=== PATIENT | male | born 1940 | race Caucasian/White ===

== ENCOUNTER 2021-05-05 08:33 | Inpatient (IN) ==
--- NOTE | 2021-05-05 08:52 | Emergency Department Note ---
Impression & Plan Bilateral leg weakness, Myelopathy concurrent with and due to spinal stenosis of thoracic region, Back pain ED Provider Note NAME: SHONNA BRAXTON AGE: 81 SEX: M : 1940 ARRIVES VIA: Walk-In INFORMANT: Patient ED PROVIDER(S): Stephen Frost DO CHIEF COMPLAINT: back pain and leg weakness HPI: Patient is an 81-year-old male who presents to the ER for worsening lower back pain and weakness in his bilateral lower extremities. This has been going on for the past year. He notes that recently over the past month it has significantly worsened. He can no longer walk in the snow. He is having trouble getting around his house. He denies any headache or change in vision. No chest pain or shortness of breath. He notes he does feel constipated. No belly pain. Denies any dysuria, urgency, or frequency. No trouble moving his bowels. No new numbness. 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 He is following with Dr. Saldaña as an outpatient. He is scheduled to have this operated on. He came in today as his symptoms have worsened. ROS: See above HPI for pertinent positives & negatives. A total of 10 systems reviewed and were otherwise negative. PAST MEDICAL HISTORY:See Below PAST SURGICAL HISTORY:See Below FAMILY HISTORY:See Below SOCIAL HISTORY:See Below HOME MEDICATIONS:See Below ALLERGIES:See Below VITALS:See Below PHYSICAL EXAMINATION: GENERAL: Sitting up in bed, alert, well appearing, well nourished, no distress, non-toxic EYE EXAM: normal conjunctiva. OROPHARYNX: no exudate, no erythema, lips, buccal mucosa, and tongue normal and mucous membranes are moist NECK: supple, no nuchal rigidity, no adenopathy, non-tender LUNGS: Clear to auscultation. Normal chest wall mechanics HEART: no murmurs, S1 normal and S2 normal ABDOMEN: abdomen soft, non-tender, normo-active bowel sounds, no masses, no rebound or guarding. BACK: Back is symmetrical on inspection and there is no deformity, old midline incision with midline tenderness UPPER EXTREMITIES: upper extremities are grossly normal. LOWER EXTREMITIES: Flexion and extension of the right hip is slightly weaker than the left at 4/5. Flexion extension of the knees is intact. Unable to plantar and dorsiflex on the right. Plantar and dorsiflexion is intact on the left. Able to ambulate with a left and has difficulty lifting right foot. NEURO EXAM: Normal sensorium, cranial nerves II-XII grossly intact, normal speech. MEDICAL DECISION MAKING: Patient is an 81-year-old male who presents ER for worsening back pain likely secondary to spinal stenosis. He notes he can barely get around at home and cannot walk in the snow. IV was established blood work was obtained. Labs show no significant leukocytosis or anemia. BMP was unremarkable. LFTs bilirubin lipase was unremarkable. On exam he does have some weakness in the right leg. Uncertain of chronicity. He does admit to trouble getting around and deterioration at home. Discussed with Dr. Saldaña who this patient follows with. No need for additional imaging. Will evaluate the patient admit for further work-up. Triage Nursing notes reviewed. Limited review of prior medical records performed Vital Signs: reviewed and remarkable for no significant abnormalities Differential diagnosis: Differential diagnoses includes but is not limited to lumbar radiculopathy, kidney stone, muscle strain, facture, cauda equina, mass, and disc herniation. ER treatment provided: See below Diagnostics interpreted by me: ECG: none Cardiac Monitoring: An order was placed for continuous cardiac monitoring. The monitor shows a rate of 70 with sinus rhythm. Laboratory studies: As stated above and show below. Imaging studies: See below Consultation(s): Discussed with Dr. Saldaña for further evaluation Procedures: none Critical Care: None Past Med/Surg History Social History Smoking Status: Never smoker Feels Safe at Home: Yes Allergies Allergies Allergy/AdvReac Type Severity Reaction Status Date / Time No Known Allergies Allergy Unknown Verified 05/05/21 09:38 Home Meds Home Medications Medication Instructions Recorded Confirmed alfuzosin 10 mg tablet,extended 10 mg PO DAILY@1400 05/05/21 05/05/21 release 24 hr bisoprolol fumarate 5 mg tablet 2.5 mg PO QAM 05/05/21 05/05/21 bumetanide 1 mg tablet 1 mg PO TID 05/05/21 05/05/21 calcium carbonate 500 mg-vitamin 1 tab PO QDL 05/05/21 05/05/21 D3 5 mcg (200 unit) tablet (Calcium 500 + D) cholecalciferol (vitamin D3) 25 25 mcg PO BID 05/05/21 05/05/21 mcg (1,000 unit) capsule (Vitamin D3) coQ10 (ubiquinol) 200 mg capsule 200 mg PO QDL 05/05/21 05/05/21 cyanocobalamin (vitamin B-12) 1,000 mcg PO QDL 05/05/21 05/05/21 1,000 mcg tablet (Vitamin B-12) folic acid 800 mcg tablet 0.8 mg PO QDL 05/05/21 05/05/21 hydroxychloroquine 200 mg tablet 200 mg PO BID 05/05/21 05/05/21 magnesium oxide 400 mg PO QDL 05/05/21 05/05/21 pantoprazole 40 mg tablet,delayed 40 mg PO QAM 05/05/21 05/05/21 release ramipril 10 mg capsule 10 mg PO UD 05/05/21 05/05/21 testosterone 30 mg/actuation (1.5 1 pump TOPICAL QAM 05/05/21 05/05/21 mL) transderm solution metered pump vitamin E (dl, acetate) 180 mg 180 mg PO QAM 05/05/21 05/05/21 (400 unit) capsule zinc 50 mg tablet 50 mg PO QDL 05/05/21 05/05/21 Results & Data (ED) Vital Signs Vital Signs - 24 hr 05/05/21 08:37 05/05/21 09:30 05/05/21 09:39 Temperature 36.8 C Temperature Source Temporal Artery Scan Pulse Rate 86 80 81 Pulse Rate from SpO2 Sensor 83 Pulse Rhythm Regular Respiratory Rate 20 20 16 Respiratory Effort / Characteristics Non-Labored Spontaneous Respiratory Depth Normal Respiratory Pattern Regular Blood Pressure 139/73 127/70 Blood Pressure Mean 95 89 Pulse Oximetry 94 94 93 Oxygen Delivery Method Room Air Room Air Room Air Sepsis Recent Fever Within 48 Hours No Sepsis New/Unexplained Change in Mental Status No Sepsis Action Taken by Nursing No Action Required 05/05/21 10:00 Temperature Temperature Source Pulse Rate 73 Pulse Rate from SpO2 Sensor 79 Pulse Rhythm Respiratory Rate 23 Respiratory Effort / Characteristics Respiratory Depth Respiratory Pattern Blood Pressure 136/88 Blood Pressure Mean 104 Pulse Oximetry 93 Oxygen Delivery Method Sepsis Recent Fever Within 48 Hours Sepsis New/Unexplained Change in Mental Status Sepsis Action Taken by Nursing Laboratory Data Result diagrams: 05/05/21 09:30 05/05/21 09:30 Lab Results 05/05/21 05/05/21 05/05/21 Range/Units 09:30 09:30 09:31 WBC 10.10 (4.8-10.8) K/uL RBC 4.12 L (4.7-6.1) M/uL Hgb 15.4 (14.0-18.0) g/dL Hct 44.9 (42-52) % MCV 109.0 H (80-100) fL MCH 37.4 H (25-34) pg MCHC 34.3 (32-36) g/dL RDW Std Deviation 68.0 H (36.4-46.3) fL RDW Coeff of Nora 17.2 H (11.5-14.5) % Plt Count 229 (130-400) K/uL MPV 11.0 H (7.4-10.4) fL Immature Gran % (Auto) 3.5 % Neut % (Auto) 73.7 % Lymph % (Auto) 9.7 % Bates % (Auto) 10.6 % Eos % (Auto) 1.9 % Baso % (Auto) 0.6 % Neut # (Auto) 7.45 H (1.4-6.5) K/uL Lymph # (Auto) 0.98 L (1.2-3.4) K/uL Bates # (Auto) 1.07 H (0.11-0.59) K/uL Eos # (Auto) 0.19 (0-0.5) K/uL Baso # (Auto) 0.06 (0-0.2) K/uL Immature Gran # (Auto) 0.35 H (0.00-0.02) K/uL Sodium 135 L (136-145) mmol/L Potassium 3.5 (3.5-5.1) mmol/L Chloride 97 L (98-107) mmol/L Carbon Dioxide 32 (21-32) mmol/L Anion Gap 6 (3-11) BUN 15 (6-23) mg/dl Creatinine 0.83 (0.6-1.4) mg/dl Est Cr Clr Drug Dosing 86.3 ml/min Est GFR ( Amer) 94.3 ml/min Est GFR (Non-Af Amer) 81.4 ml/min BUN/Creatinine Ratio 18.1 (10-20) Glucose 110 H (70-99(Fasting)) mg/dl Calcium 8.5 (8.5-10.1) mg/dl Total Bilirubin 1.1 H (0.2-1.0) mg/dl AST 27 (13-39) U/L ALT 19 (7-52) U/L Alkaline Phosphatase 42 (34-104) U/L Total Protein 6.0 (6.0-8.3) gm/dl Albumin 3.7 (3.4-5.0) gm/dl Globulin 2.3 L (2.5-4.0) gm/dl Albumin/Globulin Ratio 1.6 (0.9-2) Lipase 22 (11-82) U/L SARS-CoV-2, RNA, NAAT NEGATIVE (NEGATIVE) Discharge Plan Visit Data Chief Complaint: Leg Weakness, Bilateral Stated Complaint: LEG NUMBNESS AND PAIN ED Provider: Stephen Frost Discharge Problem: Bilateral leg weakness, Myelopathy concurrent with and due to spinal stenosis of thoracic region, Back pain Forms Stand Alone Forms: [facility] Prescriptions Prescriptions: No Action cyanocobalamin (vitamin B-12) [Vitamin B-12] 1,000 mcg Tablet 1,000 mcg PO QDL RF: 0 bisoprolol fumarate 5 mg tablet 2.5 mg PO QAM RF: 0 pantoprazole 40 mg tablet,delayed release (DR/EC) 40 mg PO QAM RF: 0 bumetanide 1 mg tablet 1 mg PO TID RF: 0 zinc 50 mg Tablet 50 mg PO QDL RF: 0 hydroxychloroquine 200 mg tablet 200 mg PO BID RF: 0 folic acid 800 mcg Tablet 0.8 mg PO QDL RF: 0 ramipril 10 mg capsule 10 mg PO UD RF: 0 cholecalciferol (vitamin D3) [Vitamin D3] 25 mcg (1,000 unit) Capsule 25 mcg PO BID RF: 0 alfuzosin 10 mg tablet extended release 24 hr 10 mg PO DAILY@1400 RF: 0 calcium carbonate-vitamin D3 [Calcium 500 + D] 500 mg-5 mcg (200 unit) Tablet 1 tab PO QDL RF: 0 vitamin E (dl, acetate) 180 mg (400 unit) Capsule 180 mg PO QAM RF: 0 coQ10 (ubiquinol) 200 mg Capsule 200 mg PO QDL RF: 0 testosterone 30 mg/actuation (1.5 mL) solution in metered pump w/ana 1 pump topical QAM RF: 0 magnesium oxide 400 mg magnesium Tablet 400 mg PO QDL RF: 0 Referrals Referrals: PCP,NO [Physician] -
--- NOTE | 2021-05-05 09:31 | History & Physical Report ---
Date of Service May 05, 2021 Assessment & Plan (1) Myelopathy concurrent with and due to spinal stenosis of thoracic region: Plan: Assessment thoracic myelopathy. Plan at this time the patient does have an MRI dated 04/13/2019 2L thoracic spine demonstrating disc herniation severe spinal stenosis and evidence of instability at T10-T11. He is clearly progressive myelopathy and is requiring an urgent thoracic decompression fusion T10-T11. Risk benefits pros cons alternatives were outlined in detail. We will admit the patient for preoperative evaluation and plan for surgery in the a.m. History of Present Illness Chief Complaint: Bilateral leg weakness numbness and tingling Primary Care Provider: Salinas Garza This is an 81-year-old male the presents with steady decline in status. He does have known thoracic myelopathy. 6 carotid numbness and tingling in the bilateral extremities with progressive strength deficit and balance decline. He is here with worsening of his condition. Allergies Allergy/AdvReac Type Severity Reaction Status Date / Time No Known Allergies Allergy Unknown Verified 01/23/08 10:57 Home Medications Medication Instructions Recorded Confirmed Type Ascorbic Acid (Vitamin C *) 1,000 mg PO DAILY PRN #0 01/24/08 History Aspirin Enteric Coated (Ecotrin Or 81 mg PO DAILY #0 01/24/08 History Generic *) Calcium (Caltrate) 600 mg PO PRN #0 01/24/08 History Ergocalciferol (Vitamin D Cap) 1 dose PO DAILY #0 01/24/08 History Fish Oil ([place]-3) 1 cap PO PRN #0 01/24/08 History Folic Acid (Folvite *) 400 mcg PO DAILY #0 01/24/08 History GARLIC 2 tabs PO BID #0 01/24/08 History GLUCOSAMINE/VERONICA 1 - 2 tabs PO DAILY #0 01/24/08 History Hydrochlorothiazide (Hctz *) 12.5 mg PO DAILY #0 01/24/08 History Meloxicam (Mobic) 7.5 mg PO DAILY PRN #0 01/24/08 History Ramipril (Altace *) 10 mg PO DAILY #0 01/24/08 History Tocopheryl Acet,Dl-Alpha (Vitamin 400 inter.unit PO PRN #0 01/24/08 History E) Past Med/Surg History Social History Smoking Status: Never smoker Feels Safe at Home: Yes Physical Exam Physical Exam: On exam patient does ambulate with a widened unsteady gait. He has brisk bilateral reflexes at the patellar Achilles. Sensory is diminished. Exhibits breakaway weakness to detailed testing bilateral extremities plantar flexion dorsiflexion quadriceps. Negative logroll. Results & Data ([facility]) Vital Signs (Past 12 Hours) Vital Signs Temp Pulse Resp BP Pulse Ox 05/05/21 08:37 36.8 C 86 20 139/73 94 Code Status & VTE Plan VTE Prophylaxis Plan VTE Prophylaxis will be ordered: Yes
[2021-05-05 09:45] LABS: Basophils # (auto) 0.06 K/uL (0-0.2); Basophils % (auto) 0.6 %; Eosinophils # (auto) 0.19 K/uL (0-0.5); Eosinophils % (auto) 1.9 %; Hematocrit (blood only) 44.9 % (42-52); Hemoglobin 15.4 g/dL (14.0-18.0); Immature Granulocytes # (auto) 0.35 K/uL (0.00-0.02); Immature Granulocytes % (auto) 3.5 %; Lymphocytes # (auto) 0.98 K/uL (1.2-3.4); Lymphocytes % (auto) 9.7 %; Mean Corpuscular Hemoglobin 37.4 pg (25-34); Mean Corpuscular Hgb Conc 34.3 g/dL (32-36); Monocytes # (auto) 1.07 K/uL (0.11-0.59); Monocytes % (auto) 10.6 %; Neutrophils # (auto) 7.45 K/uL (1.4-6.5); Neutrophils % (auto) 73.7 %; Platelet Count 229 K/uL (130-400); RDW Coefficient of Variation 17.2 % (11.5-14.5); Red Blood Count 4.12 M/uL (4.7-6.1)
[2021-05-05 10:06] LABS: Albumin Globulin Ratio 1.6 (0.9-2); Albumin Level 3.7 gm/dl (3.4-5.0); BUN Creatinine Ratio 18.1 (10-20); Bilirubin,Total 1.1 mg/dl (0.2-1.0); Calcium 8.5 mg/dl (8.5-10.1); Creatinine Clr Calc Pharmacy 86.3 ml/min; Est GFR (African American) 94.3 ml/min; Est GFR (Non-African American) 81.4 ml/min; Globulin 2.3 gm/dl (2.5-4.0); Potassium 3.5 mmol/L (3.5-5.1)
[2021-05-05] MEDS ORDERED: HYDROmorphone INJ 1 MG/ML SYRINGE IV PRN (12:24)
[2021-05-05] MEDS ORDERED: HYDROmorphone INJ 0.5 MG/0.5 ML SYR IV PRN (12:24)
[2021-05-05] MEDS ORDERED: ALUMINUM/MAGNESIUM SUSP 30 ML UDC PO PRN (12:24)
[2021-05-05] MEDS ORDERED: ACETAMINOPHEN 500 MG TAB PO PRN (12:24)
[2021-05-05] MEDS ORDERED: NALOXONE HCL 0.4 MG/1 ML VIAL/CARP IV PRN (12:24)
[2021-05-05] MEDS ORDERED: oxyCODONE HCL IR 5 MG TAB (IMMEDIATE RELEASE) PO PRN (12:24)
[2021-05-05] MEDS ORDERED: diphenhydrAMINE Capsule 25 MG CAP PO PRN (12:24)
[2021-05-05] MEDS ORDERED: ONDANSETRON 4 MG OD TAB PO PRN (12:24)
[2021-05-05] MEDS ORDERED: hydrOXYzine HCl 25 MG TAB PO PRN (12:24)
[2021-05-05] MEDS ORDERED: ACETAMINOPHEN 1,000 MG/100 ML VIAL IV PRN (12:24)
[2021-05-05] MEDS ORDERED: METOCLOPRAMIDE HCL INJ 5 MG/ML 2 ML VIAL IV PRN (12:24)
[2021-05-05] MEDS ORDERED: PROMETHAZINE HCL 12.5 MG in SODIUM CHLORIDE 0.9% 50 ML IV PRN (12:24)
[2021-05-05] MEDS ORDERED: ONDANSETRON INJ 2 MG/ML 2 ML VIAL IV PRN (12:24)
[2021-05-05] MEDS ORDERED: traMADol HCL 50 MG TABLET PO PRN (12:24)
[2021-05-05] MEDS: SODIUM CHLORIDE 0.9% 1000ML 1,000 ML IV SCH (12:47)
--- NOTE | 2021-05-05 14:51 | Hospitalist Consultation ---
Date of Consultation May 05, 2021 Assessment & Plan (1) Myelopathy concurrent with and due to spinal stenosis of thoracic region: -Admitted to the spine orthopedic service for planned T10-T11 decompression and fusion tomorrow by Dr. Saldaña -Labs unremarkable, patient currently hemodynamically stable -Functional capacity limited due to ongoing back pain and lower extremity weakness however patient does ride a stationary bike daily without cardiopulmonary complaint -Records obtained from patient's outpatient paper latcher (echocardiogram, EKG, recent cardiac cath) - Dr. Mayelin PH D -Cardiac cath 2020 demonstrated normal coronaries and normal filling pressures -CXR clear -EKG demonstrates atrial fibrillation without acute ST changes (2) Chronic diastolic CHF (congestive heart failure): -Echo 01/2021-mild LVH, EF 55 to 60%, severely dilated left atrium, moderately dilated right atrium -Will hold Bumex preoperatively, resume as able -Appears euvolemic (3) Atrial fibrillation: -Rate controlled on bisoprolol -Anticoagulated Eliquis, resume at the discretion of spine orthopedics (4) HTN (hypertension): -BP mildly elevated, may be situational -Hold ramipril preoperatively, continue bisoprolol (5) Rheumatoid arthritis: -Hold Plaquenil for now (6) Alcohol use: -Patient reports drinking 3-5 beers/day most days of the week -No current signs of withdrawal, will monitor closely (7) DVT prophylaxis: -TEDs/SCDs as per spine Ortho Thank you for this consultation. We will follow the patient with you during their hospital stay. You can reach a member of the [facility] Hospitalist Team 01/11 via the [facility] Hospitalist role in [place] [employer]. Supervising Physician Co-Signing Physician Notes Pt is a 81 y/o M with hx of HFpEF, Afib on eliquis, HTN, RA (on hydroxychloroquine), Prior Lumbar surgery and b/l knee replacement admitted for thoracic spine surgery for Myelopathy with spinal stenosis of thoracic region. PE: NAD, well developed Cardiac: in afib, no murmur Lungs: CTA, no wheezing or crackles Abd: ND, Soft, NT LE: no edema Psych: AAOX3 A/P: Myelopathy with spinal stenosis of thoracic spine -NPo after MN and pt is sched for surgery tomorrow -Labs are overall stable Afib and HFpEF: -has been holding eliquis since 06/03 -c/w BB -pt is euvolemic and VSS Agree with A/P by DELIA Bryan History of Present Illness Reason for Consultation: Preop eval, medical management Requesting Physician: Dr. Saldaña Attending Physician: Dr. Castrejon History of Present Illness 81-year-old male with PMH paroxysmal atrial fibrillation anticoagulated on Eliquis, HTN, rheumatoid arthritis, chronic diastolic CHF, and other problems listed below who presented to the ED today for intractable back pain and bilateral lower extremity weakness. Patient has known thoracic myelopathy. He was evaluated by Dr. Saldaña who is planning on thoracic decompression fusion T10-T11. Limited old records available for review at this time. Patient reports cardiac cath 6 months ago that was "clean". Patient reports getting some occasional exertional shortness of breath which he attributes to his back pain. Functional capacity is limited due to back pain and lower extremity weakness. Patient reports he rides a stationary bike daily without any difficulty. Denies chest pain. No lightheadedness, dizziness, diaphoresis, syncopal events. Denies any other recent illnesses, fevers, chills. No abdominal pain, nausea, vomiting, diarrhea. Denies urinary symptoms. Labs today are unremarkable. Patient is hemodynamically stable. Allergies Allergy/AdvReac Type Severity Reaction Status Date / Time No Known Allergies Allergy Unknown Verified 05/05/21 09:38 Home Medications Medication Instructions Recorded Confirmed Type alfuzosin 10 mg tablet,extended 10 mg PO DAILY@1400 05/05/21 05/05/21 History release 24 hr apixaban 5 mg tablet (Eliquis) 5 mg PO BID 05/05/21 05/05/21 History bisoprolol fumarate 5 mg tablet 2.5 mg PO QAM 05/05/21 05/05/21 History bumetanide 1 mg tablet 1 mg PO TID 05/05/21 05/05/21 History calcium carbonate 500 mg-vitamin 1 tab PO QDL 05/05/21 05/05/21 History D3 5 mcg (200 unit) tablet (Calcium 500 + D) cholecalciferol (vitamin D3) 25 25 mcg PO BID 05/05/21 05/05/21 History mcg (1,000 unit) capsule (Vitamin D3) coQ10 (ubiquinol) 200 mg capsule 200 mg PO QDL 05/05/21 05/05/21 History cyanocobalamin (vitamin B-12) 1,000 mcg PO QDL 05/05/21 05/05/21 History 1,000 mcg tablet (Vitamin B-12) folic acid 800 mcg tablet 0.8 mg PO QDL 05/05/21 05/05/21 History hydroxychloroquine 200 mg tablet 200 mg PO BID 05/05/21 05/05/21 History magnesium oxide 400 mg PO QDL 05/05/21 05/05/21 History pantoprazole 40 mg tablet,delayed 40 mg PO QAM 05/05/21 05/05/21 History release ramipril 10 mg capsule 10 mg PO UD 05/05/21 05/05/21 History testosterone 30 mg/actuation (1.5 1 pump TOPICAL QAM 05/05/21 05/05/21 History mL) transderm solution metered pump vitamin E (dl, acetate) 180 mg 180 mg PO QAM 05/05/21 05/05/21 History (400 unit) capsule zinc 50 mg tablet 50 mg PO QDL 05/05/21 05/05/21 History Patient History Medical History (Updated 05/05/21 @ 18:26 by DELIA Bryan) Atrial fibrillation Chronic diastolic CHF (congestive heart failure) HTN (hypertension) Rheumatoid arthritis Surgical History History of back surgery History of eye surgery History of total left knee replacement History of total right knee replacement Family History Father Stroke Mother Hypertension Social History (Updated 05/05/21 @ 14:57 by DELIA Bryan) Smoking Status: Never smoker Hx Alcohol Use: Yes Alcohol type: beer Alcohol Intake Frequency: 4 or More x per/Week Hx Substance Use: No Preferred Language: Persian Communication Ability: Effective Hospital Pharmacy Technician Required: No Beliefs That Will Affect Care: None Current Living Situation: Alone Other Information That Helps Us Care for You: No Feels Safe at Home: Yes Safety Concerns: Feels Safe At This Time Assistive Devices: Brace/Splint/Immobilizer, Denture - Upper, Denture - Lower and Glasses Review of Systems Review of Systems: ROS per HPI, all other systems reviewed and negative Physical Exam Constitutional: WD/WN, vitals as above Eyes: PERRL, conjunctivae normal, anicteric sclerae ENMT: external ear and nose normal, oropharynx normal Respiratory: normal respiratory effort, lungs clear to auscultation Cardiovascular: Rate/Rhythm: regular rate and + irregularly irregular Vessels: normal peripheral pulses Extremities: no edema Gastrointestinal (Abdomen): normal bowel sounds, soft, nontender, no hepatosplenomegaly Musculoskeletal: Extremities: no cyanosis and no clubbing Right foot drop Skin: no rashes, warm and dry Neurologic: PERRL, EOMI, accommodation nl, no face palsy, no dysarthria Psychiatric: A+Ox3, euthymic affect Results & Data Results & Data ([facility]) Vital Signs (Past 12 Hours) Vital Signs Temp Pulse Pulse Resp BP BP Pulse Ox 05/05/21 12:48 36.7 C 78 16 155/87 H 96 05/05/21 12:26 36.7 C 78 16 155/87 H 96 05/05/21 12:00 18 150/94 H 96 05/05/21 10:30 79 16 146/97 H 95 05/05/21 10:00 73 23 136/88 93 05/05/21 09:39 81 16 127/70 93 05/05/21 09:30 80 20 94 05/05/21 08:37 36.8 C 86 20 139/73 94 Laboratory Results Short CBC 05/05/21 Range/Units 09:30 WBC 10.10 (4.8-10.8) K/uL Hgb 15.4 (14.0-18.0) g/dL Hct 44.9 (42-52) % Plt Count 229 (130-400) K/uL BMP 05/05/21 09:30 Sodium 135 L Potassium 3.5 Chloride 97 L Carbon Dioxide 32 BUN 15 Creatinine 0.83 Glucose 110 H Calcium 8.5 Liver Function 05/05/21 Range/Units 09:30 Total Bilirubin 1.1 H (0.2-1.0) mg/dl AST 27 (13-39) U/L ALT 19 (7-52) U/L Alkaline Phosphatase 42 (34-104) U/L Albumin 3.7 (3.4-5.0) gm/dl
--- NOTE | 2021-05-05 15:22 | XRay Report ---
XR chest 1V portable CLINICAL HISTORY: Preoperative evaluation. COMPARISON STUDY: Chest radiograph January 10, 2008. FINDINGS: Lung volumes are normal. There is no pneumothorax or pleural effusion. Linear bibasilar opa cities favor atelectasis. No consolidation to suggest pneumonia. Cardiac size is within normal limits . IMPRESSION: No acute cardiopulmonary findings. ACT 112: Negative or not required by law. Electronically signed by: Ruddy Lu M.D. 05/05/2021 3:21 PM
[2021-05-05 15:45] LABS: Appearance Urine Clear (Clear); Bacteria Urine Automated Negative (Negative); Bilirubin Urine Negative (Negative); Blood Urine Negative (Negative); Cast Urine Automated 0 /lpf (0-5); Color Urine Yellow; Glucose Urine UA Negative (Negative); Ketones Urine Negative (Negative); Leukocyte Esterase Urine Trace (Negative); Nitrite Urine Negative (Negative); Protein Urine Negative (Negative); RBC Urine Automated 0-4 /hpf (0-4); Specific Gravity Urine 1.013 (1.000-1.030); Urobilinogen Urine Negative (Negative)
[2021-05-06] MEDS: SODIUM CHLORIDE 0.9% 1000ML 1,000 ML IV SCH ×3 (01:28→21:05)
[2021-05-06] MEDS ORDERED: ceFAZolin 2000MG 2,000 MG/15 ML SYR IV SCH (06:00)
[2021-05-06 07:30] LABS: Hematocrit (blood only) 44.6 % (42-52); Hemoglobin 15.1 g/dL (14.0-18.0); Mean Corpuscular Hgb Conc 33.9 g/dL (32-36); Mean Corpuscular Volume 109.3 fL (80-100); Mean Platelet Volume 10.9 fL (7.4-10.4); Platelet Count 233 K/uL (130-400); RDW Coefficient of Variation 17.1 % (11.5-14.5); RDW Standard Deviation 68.2 fL (36.4-46.3); Red Blood Count 4.08 M/uL (4.7-6.1); White Blood Count 8.37 K/uL (4.8-10.8)
[2021-05-06 07:54] LABS: BUN Creatinine Ratio 16.5 (10-20); Calcium 7.9 mg/dl (8.5-10.1); Creatinine Clr Calc Pharmacy 82.9 ml/min; Est GFR (African American) 93.4 ml/min; Est GFR (Non-African American) 80.6 ml/min; Potassium 3.5 mmol/L (3.5-5.1)
[2021-05-06] MEDS: BISOPROLOL FUMARATE 5 MG TAB PO SCH (08:32)
[2021-05-06] MEDS: PANTOprazole 40 MG TAB PO SCH (08:51)
[2021-05-06] MEDS ORDERED: [UNRECOGNIZED DRUG - OTHER] PO SCH (09:00)
[2021-05-06] MEDS ORDERED: HYDROCHLOROTHIAZIDE 12.5 MG PO SCH (09:00)
[2021-05-06] MEDS ORDERED: [UNRECOGNIZED DRUG - REMARK] PO SCH (09:00)
[2021-05-06] MEDS ORDERED: fentaNYL citrate 100 MCG/2 ML VIAL ONE (10:09)
--- NOTE | 2021-05-06 11:24 | History & Physical Bridge Note ---
Date of Service May 06, 2021 History & Physical Bridge Note I have examined the patient, reviewed the History & Physical and in the interval since the performance of the History & Physical I have noted the following changes of clinical significance: no changes noted
[2021-05-06] MEDS ORDERED: EPINEPHrine INJ 1 MG/ML AMP ONE (11:43)
[2021-05-06] MEDS ORDERED: BUPIVACAINE 0.5 % 5 MG/1 ML MPF 30ML VIAL ONE (11:43)
[2021-05-06] MEDS ORDERED: ceFAZolin 330 MG/ML 1 GM VIAL ONE (11:43)
--- NOTE | 2021-05-06 11:58 | Anesthesiology Consultation ---
Date of Service May 06, 2021 Assessment & Plan (1) Encounter for pre-operative examination: Chart Review Chart Review: Acceptable Risk for Surgery History Surgery Operation Date: 05/06/21 10:55 Proposed Procedures p T10-T11 Decompression Fusion - Per Saldaña DO Height/Weight Height: 6 ft Weight: 106.1 kg Allergies Allergy/AdvReac Type Severity Reaction Status Date / Time No Known Allergies Allergy Unknown Verified 05/05/21 09:38 Medications Home Medications Medication Instructions Recorded Confirmed Last Taken alfuzosin 10 mg tablet,extended 10 mg PO DAILY@1400 05/05/21 05/05/21 05/04/21 release 24 hr apixaban 5 mg tablet (Eliquis) 5 mg PO BID 05/05/21 05/05/21 Unknown bisoprolol fumarate 5 mg tablet 2.5 mg PO QAM 05/05/21 05/05/21 05/04/21 bumetanide 1 mg tablet 1 mg PO TID 05/05/21 05/05/21 05/04/21 calcium carbonate 500 mg-vitamin 1 tab PO QDL 05/05/21 05/05/21 05/04/21 D3 5 mcg (200 unit) tablet (Calcium 500 + D) cholecalciferol (vitamin D3) 25 25 mcg PO BID 05/05/21 05/05/21 05/04/21 mcg (1,000 unit) capsule (Vitamin D3) coQ10 (ubiquinol) 200 mg capsule 200 mg PO QDL 05/05/21 05/05/21 05/04/21 cyanocobalamin (vitamin B-12) 1,000 mcg PO QDL 05/05/21 05/05/21 05/04/21 1,000 mcg tablet (Vitamin B-12) folic acid 800 mcg tablet 0.8 mg PO QDL 05/05/21 05/05/21 05/04/21 hydroxychloroquine 200 mg tablet 200 mg PO BID 05/05/21 05/05/21 05/04/21 magnesium oxide 400 mg PO QDL 05/05/21 05/05/21 05/04/21 pantoprazole 40 mg tablet,delayed 40 mg PO QAM 05/05/21 05/05/21 05/04/21 release ramipril 10 mg capsule 10 mg PO UD 05/05/21 05/05/21 05/04/21 testosterone 30 mg/actuation (1.5 1 pump TOPICAL QAM 05/05/21 05/05/21 05/05/21 mL) transderm solution metered pump vitamin E (dl, acetate) 180 mg 180 mg PO QAM 05/05/21 05/05/21 05/04/21 (400 unit) capsule zinc 50 mg tablet 50 mg PO QDL 05/05/21 05/05/21 05/04/21 Active Medications Generic Name Dose Route Start Last Admin Trade Name Freq PRN Reason Stop Dose Admin Acetaminophen 1,000 mg 05/05/21 12:24 05/05/21 21:08 Acetaminophen 500 Mg Tab PO 06/04/21 12:23 1,000 mg Q8H PRN Administration MILD Pain Scale 1,2,3 & Pre PT Bisoprolol Fumarate 2.5 mg 05/06/21 09:00 05/06/21 08:32 Bisoprolol Fumarate 5 Mg Tab PO 06/05/21 08:59 2.5 mg QAM KARISSA Administration Hydromorphone HCl 0.5 mg 05/05/21 12:24 05/06/21 08:33 Hydromorphone Inj 0.5 Mg/0.5 Ml Syr IV 05/19/21 12:23 0.5 mg Q3H PRN Administration MOD pain (scale 4-6) & Pre PT Sodium Chloride 1,000 mls @ 75 mls/hr 05/05/21 12:24 05/06/21 01:28 Nss 1000ml IV 06/04/21 12:23 75 mls/hr .[id number] KARISSA Administration Pantoprazole Sodium 40 mg 05/06/21 09:00 05/06/21 08:51 Pantoprazole 40 Mg Tab PO 06/05/21 08:59 40 mg QAM KARISSA Administration NPO Date Last Intake of Fluids: 05/06/21 Time Last Intake of Fluids: 08:45 Last Intake of Fluids Comment: Slips water with meds and NPO after midnight Date Last Intake of Solids: 05/05/21 Time Last Intake of Solids: 18:00 Past Medical History Medical History Atrial fibrillation Chronic diastolic CHF (congestive heart failure) HTN (hypertension) Rheumatoid arthritis Past Family History Family History Father Stroke Mother Hypertension Past Surgical History Surgical History History of back surgery History of eye surgery History of total left knee replacement History of total right knee replacement Social History Smoking Status: Never smoker Hx Alcohol Use: Yes Alcohol type: beer alcohol intake frequency: a few times a week Hx Substance Use: No Physical Exam Vital Signs Last Vital Signs Temp 36.5 C 05/06/21 10:40 Pulse 81 05/06/21 10:40 Resp 18 05/06/21 10:40 BP 179/112 H 05/06/21 10:40 Pulse Ox 96 05/06/21 10:40 Testing Laboratory Results 05/06/21 06:32 05/06/21 06:32 Urine Color Yellow 05/05/21 15:08 Urine Appearance Clear (Clear) 05/05/21 15:08 Urine pH 8.0 (4.5-7.5) H 05/05/21 15:08 Ur Specific [place] 1.013 (1.000-1.030) 05/05/21 15:08 Urine Protein Negative (Negative) 05/05/21 15:08 Urine Glucose (UA) Negative (Negative) 05/05/21 15:08 Urine Ketones Negative (Negative) 05/05/21 15:08 Urine Nitrite Negative (Negative) 05/05/21 15:08 Ur Leukocyte Esterase Trace (Negative) H 05/05/21 15:08 Urine WBC (Auto) 1-5 /hpf (0-5) 05/05/21 15:08 Urine RBC (Auto) 0-4 /hpf (0-4) 05/05/21 15:08 U Hyaline Cast (Auto) 0 /lpf (0-5) 05/05/21 15:08 U Epithel Cells (Auto) 5-10 /lpf (0-5) H 05/05/21 15:08 Urine Bacteria (Auto) Negative (Negative) 05/05/21 15:08 Blood Type O Positive 05/05/21 16:17 Antibody Screen POSITIVE A 05/05/21 16:17 Electrocardiogram Date: 05/05/21 Findings: + AFIB @ (92) Chest X-Ray Date: 05/05/21 Findings: + NAD Echocardiogram Date: 01/17/21 EF: 55-60 Valvular Disease: + no significant valvular disease
[2021-05-06] MEDS ORDERED: LABETALOL HCL IV 5 MG/ML 20ML IV PRN (12:04)
[2021-05-06] MEDS ORDERED: HYDROmorphone INJ 1 MG/ML SYRINGE IV PRN ×2 (12:04→14:40)
[2021-05-06] MEDS ORDERED: ONDANSETRON INJ 2 MG/ML 2 ML VIAL IV PRN ×2 (12:04→14:40)
[2021-05-06] MEDS ORDERED: ATROPINE SULFATE 0.1 MG/ML 10ML SYR IV PRN (12:04)
[2021-05-06] MEDS ORDERED: DEXAMETHASONE SOD INJ 4 MG/ML VIAL ONE (12:41)
[2021-05-06] MEDS ORDERED: PHENYLEPHRINE 100MCG/ML 5ML SYR ONE (12:41)
[2021-05-06] MEDS ORDERED: NEOSTIGMINE METHYLSULFATE 1 MG/ML 10ML VIAL ONE (12:41)
[2021-05-06] MEDS ORDERED: ONDANSETRON INJ 2 MG/ML 2 ML VIAL ONE (12:41)
[2021-05-06] MEDS ORDERED: LARYING-O-JET KIT (LTA) ONE (12:41)
[2021-05-06] MEDS ORDERED: LIDOCAINE 2% 2 ML VIAL/AMP(20MG/ML) INFIL ONE (12:41)
[2021-05-06] MEDS ORDERED: ROCURONIUM BROMIDE 10 MG/ML 5 ML VIAL IV ONE (12:41)
[2021-05-06] MEDS ORDERED: GLYCOPYRROLATE 0.2 MG/ML VIAL ONE (12:41)
[2021-05-06] MEDS ORDERED: PROPOFOL IV EMULSION 10 MG/ML 20 ML VIAL IV ONE (12:41)
[2021-05-06] MEDS ORDERED: FLOSEAL HEMOSTATIC MATRIX 10ML TOP ONE (13:29)
--- NOTE | 2021-05-06 13:32 | Operative Report ---
Post Operative Report Pre & Post Diagnosis Operation Date: 05/06/21 10:55 Pre-Op Diagnosis: Thoracic Myelopathy Post-Op Diagnosis: Thoracic Myelopathy I identified the patient and participated in the time-out.: Yes Procedure Operation Date: 05/06/21 10:55 Actual Procedures #1 thoracic decompression with bilateral medial facetectomies T9-T10 T10-T11. #2 posterior spinal fusion T10-T11. #3 placement posterior instrumentation T10-T11. #4 placement locally harvested morselized autograft in the posterior gutters. #5 placement infuse collagen sponge and master graft and posterior gutters T10-T11. Surgeon Per Saldaña, In [employer] Manager Martha Alford Estimated Blood Loss 100 Findings Consistent with Post-Op Diagnosis Specimens None Indications Is an 81 male who presents to my office with marked balance discrepancy and numbness in his lower extremities. He was separately diagnosed with advanced thoracic spinal stenosis and myelomalacia and is here for urgent decompression fusion. Description of Procedure Patient was met with identified informed consent obtained. Patient was then taken to the operative suite underwent ablation placed in a prone position the [place]ansisco table on top of the Jaguar frame. All bony prominences well-padded eyes inspected to ensure no external pressure placed upon the. This point the thoracolumbar spine was prepped and draped in a sterile fashion. With the assistance of fluoroscopy identified the T10-T11 disc base and sharp dissection with the assistance of Bovie cautery performed down to and exposing the lamina and transverse processes of T10-T11. Then performed a complete laminectomy of T10 partial laminectomy of T9 to include bilateral medial facetectomies and foraminotomies to address severe spinal stenosis. Pedicle screws were then placed in T10-T11 bilaterally with the assistance of fluoroscopy appropriately sized sheila locked into place. The transverse processes of T10-T11 were then burred to subcortical bleeding bone. Infuse collagen sponge master graft lobe autograft was placed in the posterior gutters. 15 round CAITLIN drain inserted. The incision was then closed with 1 Vicryl to fascia 2-0 Vicryl subcutaneously and 4 Monocryl for final skin closure. Steri-Strips dressings placed. Patient will continue PACU stable condition. Please note spinal cord monitoring was utilized at the procedure no changes noted. Lastly Martha Alford was present at the entire surgery and while the patient positioning complex portions of the surgery and final skin closure. I attest to the content of the Intraoperative Record and any orders documented therein. Any exceptions are noted below.
--- NOTE | 2021-05-06 13:51 | Hospitalist Progress Note ---
Date of Service May 06, 2021 Assessment & Plan (1) Myelopathy concurrent with and due to spinal stenosis of thoracic region: Plan: Admitted to the spine orthopedic service for planned T10-T11 decompression and fusion tomorrow by Dr. Saldaña Labs unremarkable, patient currently hemodynamically stable Functional capacity limited due to ongoing back pain and lower extremity weakness however patient does ride a stationary bike daily without cardiopulmonary complaint Records obtained from patient's outpatient veterinary virologist (echocardiogram, EKG, recent cardiac cath) - Dr. Juares [facility] Cardiac cath 2020 demonstrated normal coronaries and normal filling pressures CXR clear EKG demonstrates atrial fibrillation without acute ST changes Pt to undergo surgery today (2) Chronic diastolic CHF (congestive heart failure): Plan: Echo 01/2021-mild LVH, EF 55 to 60%, severely dilated left atrium, moderately dilated right atrium Will hold Bumex preoperatively, resume as able Appears euvolemic (3) Atrial fibrillation: Plan: Rate controlled on bisoprolol Anticoagulated Eliquis, resume at the discretion of spine orthopedics (4) HTN (hypertension): Plan: BP mildly elevated, may be situational Hold ramipril preoperatively, continue bisoprolol (5) Rheumatoid arthritis: Plan: Hold Plaquenil for now (6) Alcohol use: Plan: Patient reports drinking 3-5 beers/day most days of the week no current signs of withdrawal, will monitor closely awss protocol, prn ativan (7) DVT prophylaxis: Plan: TEDs/SCDs as per spine Ortho Pt was seen and examined in collaboration with Dr. Ceballos, please see addendum Thank you for this consultation. We will follow the patient with you during their hospital stay. You can reach a member of the [facility] Hospitalist Team 01/11 via the [facility] in [place] Text. Admission and Anticipated Discharge Date Admission Date: May 05, 2021 Supervising Physician Co-Signing Physician Notes Pt is a 81 y/o M with hx of HFpEF, Afib on eliquis, HTN, RA (on hydroxychloroquine), Prior Lumbar surgery and b/l knee replacement admitted for thoracic spine surgery for Myelopathy with spinal stenosis of thoracic region. Consulted for medical management. Patient is to go spinal [thoracis] decompression today by Dr. Saldaña. Agree with assessment and plan and examination as above. Patient seen and coordinated care with GABRIELLE Bolanos. I have seen and examined the patient and have discussed the case with the provider above. I agree with the assessment and plan as stated. Subjective Pt was seen and examined in room 354-1. He is to undergo back surgery today with DR. Saldaña. C/o back pain. Denies f/c/s, chest pain, sob, n/v/d. He has chronic Afib. Review of Systems Review of Systems: All systems reviewed & are unremarkable except as noted in HPI & below Physical Exam Physical Exam: Gen: WD/WN, NAD, A&O x3 HEENT: Normocephalic, atraumatic, conjunctivae moist, sclerae anicteric, mucous membranes moist. Lung: Clear to Auscultation bilaterally, no wheezes/rales/rhonchi Heart: IRR/IRR, no murmurs, rubs, or gallops Abdomen: obese abd, Soft, NT, ND +BS x 4 Extremities: No edema Skin: Warm, no rash, negative turgor. Results & Data Results & Data ([facility]) Vital Signs (Past 12 Hours) Vital Signs Temp Pulse Resp BP Pulse Ox 05/06/21 10:40 36.5 C 81 18 179/112 H 96 05/06/21 10:16 166/93 H 05/06/21 08:23 84 179/102 H 05/06/21 07:45 36.7 C 99 H 19 171/103 H 94 Medications Administered Current Inpatient Medications Acetaminophen (Acetaminophen 500 Mg Tab) 1,000 mg PO Q8H PRN PRN Reason: MILD Pain Scale 1,2,3 & Pre PT Stop: 06/04/21 12:23 Last Admin: 05/05/21 21:08 Dose: 1,000 mg Documented by: Al Hydrox/Mg Hydrox/Simethicone (Aluminum/Magnesium Susp 30 Ml Udc) 30 ml PO Q6H PRN PRN Reason: Dyspepsia Stop: 06/04/21 12:23 Alfuzosin HCl (Alfuzosin Hcl 10 Mg Tab) 10 mg PO DAILY@1400 KARISSA Stop: 06/05/21 13:59 Atropine Sulfate (Atropine Sulfate 0.1 Mg/Ml 10ml Syr) 0.5 mg IV Q1M PRN PRN Reason: PACU Use-HR<40 &/or Bradycardi Stop: 05/06/21 20:04 Bisoprolol Fumarate (Bisoprolol Fumarate 5 Mg Tab) 2.5 mg PO QAM KARISSA Stop: 06/05/21 08:59 Last Admin: 05/06/21 08:32 Dose: 2.5 mg Documented by: Diphenhydramine HCl (Diphenhydramine Capsule 25 Mg Cap) 25 mg PO Q6H PRN PRN Reason: Allergic Rhinitis/Insomnia Stop: 06/04/21 12:23 Enalapril Maleate (Enalapril Maleate 10 Mg Tab) [address] [facility] Stop: 06/05/21 08:59 Hydromorphone HCl (Hydromorphone Inj 0.5 Mg/0.5 Ml Syr) 0.5 mg IV Q3H PRN PRN Reason: MOD pain (scale 4-6) & Pre PT Stop: 05/19/21 12:23 Last Admin: 05/06/21 08:33 Dose: 0.5 mg Documented by: Hydromorphone HCl (Hydromorphone Inj 1 Mg/Ml Syringe) 1 mg IV Q3H PRN PRN Reason: severe pain (scale 7-10) Stop: 05/19/21 12:23 Hydromorphone HCl (Hydromorphone Inj 1 Mg/Ml Syringe) 0.25 mg IV Q5M PRN PRN Reason: PACU Use Only-Pain Stop: 05/06/21 20:04 Hydroxyzine HCl (Hydroxyzine Hcl 25 Mg Tab) 25 mg PO Q8H PRN PRN Reason: Anxiety Stop: 06/04/21 12:23 Cefazolin Sodium (Ancef 2000mg) 2,000 mg in 15 mls @ 3.75 mls/min IV PREOP KARISSA; Protocol Stop: 05/06/21 18:00 Last Admin: 05/06/21 12:04 Dose: 3.75 mls/min Documented by: Sodium Chloride (Nss 1000ml) 1,000 mls @ 75 mls/hr IV .[id number] KARISSA Stop: 06/04/21 12:23 Last Admin: 05/06/21 01:28 Dose: 75 mls/hr Documented by: Promethazine HCl 12.5 mg/ (Sodium Chloride) 50.5 mls @ 202 mls/hr IV Q6H PRN PRN Reason: Nausea &/or Vomiting Stop: 06/04/21 12:23 Acetaminophen (Ofirmev) 1,000 mg in 100 mls @ 400 mls/hr IV Q8H PRN PRN Reason: Pain Rating 1-3 & Pre PT Stop: 05/08/21 12:23 Labetalol HCl (Labetalol Hcl Iv 5 Mg/Ml 20ml) 5 mg IV Q5M PRN PRN Reason: PACU Use-SBP>160 or DBP>100 Stop: 05/06/21 20:04 Magnesium Oxide (Magnesium Oxide 400 Mg Tab) [address] [facility] Stop: 06/05/21 11:29 Metoclopramide HCl (Metoclopramide Hcl Inj 5 Mg/Ml 2 Ml Vial) 10 mg IV Q6H PRN PRN Reason: Nausea &/or Vomiting Stop: 06/04/21 12:23 Naloxone HCl (Naloxone Hcl 0.4 Mg/1 Ml Vial/Carp) 0.1 mg IV Q5M PRN PRN Reason: Oversedation/respiratory dep Stop: 06/04/21 12:23 Ondansetron HCl (Ondansetron Inj 2 Mg/Ml 2 Ml Vial) 4 mg IV Q6H PRN PRN Reason: Nausea &/or Vomiting Stop: 06/04/21 12:23 Ondansetron HCl (Ondansetron 4 Mg Od Tab) 4 mg PO Q6H PRN PRN Reason: Nausea Stop: 06/04/21 12:23 Ondansetron HCl (Ondansetron Inj 2 Mg/Ml 2 Ml Vial) 4 mg IV ONCE PRN PRN Reason: PACU Use Only-Nausea/Vomiting Stop: 05/06/21 20:04 Oxycodone HCl (Oxycodone Hcl Ir 5 Mg Tab (Immediate Release)) 5 - 10 mg PO Q4H PRN PRN Reason: mod to severe pain Stop: 05/19/21 12:23 Pantoprazole Sodium (Pantoprazole 40 Mg Tab) [address] [facility] Stop: 06/05/21 08:59 Last Admin: 05/06/21 08:51 Dose: 40 mg Documented by: Tramadol HCl (Tramadol Hcl 50 Mg Tablet) 50 - 100 mg PO Q4H PRN PRN Reason: Moderate-Severe pain & Pre PT Stop: 06/04/21 12:23
--- NOTE | 2021-05-06 14:10 | Fluoroscopy Report ---
INTRAOPERATIVE RADIOGRAPHS CLINICAL HISTORY: T10-T11 spinal fusion. Fluoroscopy time: 41 seconds. FINDINGS: 2 spot fluoroscopic images of the lower thoracic spine are presented. There is been laminec radha and posterior fusion at a lower thoracic level reportedly T10-T11. Interpedicular screws are in place. The orthopedic hardware appears intact. IMPRESSION: Intraoperative images from lower thoracic spinal fusion as above. Electronically signed by: Salinas Smith M.D. 05/06/2021 2:09 PM
[2021-05-06] MEDS ORDERED: ALUMINUM/MAGNESIUM SUSP 30 ML UDC PO PRN (14:40)
[2021-05-06] MEDS ORDERED: diphenhydrAMINE Capsule 25 MG CAP PO PRN (14:40)
[2021-05-06] MEDS ORDERED: SOD PHOSPHATE/SOD BIPHOSPHATE ENEMA 132 ML BTL PR PRN (14:40)
[2021-05-06] MEDS ORDERED: FAMOTIDINE 20 MG TAB PO PRN (14:40)
[2021-05-06] MEDS ORDERED: bisacodyL 10 MG SUPP PR PRN (14:40)
[2021-05-06] MEDS ORDERED: hydrOXYzine HCl 25 MG TAB PO PRN (14:40)
[2021-05-06] MEDS ORDERED: NALOXONE HCL 0.4 MG/1 ML VIAL/CARP IV PRN (14:40)
[2021-05-06] MEDS ORDERED: ACETAMINOPHEN 500 MG TAB PO PRN (14:40)
[2021-05-06] MEDS ORDERED: PROMETHAZINE HCL 12.5 MG in SODIUM CHLORIDE 0.9% 50 ML IV PRN (14:40)
[2021-05-06] MEDS ORDERED: METOCLOPRAMIDE HCL INJ 5 MG/ML 2 ML VIAL IV PRN (14:40)
[2021-05-06] MEDS ORDERED: LORazepam 0.5 MG/1 ML VIAL IV PRN (14:40)
[2021-05-06] MEDS ORDERED: DO NOT ADMINISTER PNEUMOCOCCAL VACCINE PRN (14:40)
[2021-05-06] MEDS ORDERED: LORazepam 0.5 MG TAB PO PRN (14:40)
[2021-05-06] MEDS ORDERED: traMADol HCL 50 MG TABLET PO PRN (14:40)
[2021-05-06] MEDS ORDERED: LORazepam 1 MG TAB PO PRN (14:40)
[2021-05-06] MEDS ORDERED: DO NOT ADMINISTER FLU VACCINE PRN (14:40)
[2021-05-06] MEDS ORDERED: ONDANSETRON 4 MG OD TAB PO PRN (14:40)
[2021-05-06] MEDS ORDERED: MAGNESIUM HYDROXIDE SUSP 30 ML UDC PO PRN (14:40)
[2021-05-06] MEDS ORDERED: ACETAMINOPHEN 1,000 MG/100 ML VIAL IV PRN (14:40)
--- NOTE | 2021-05-06 14:51 | Electrocardiogram Report ---
Test Reason : Blood Pressure : / mmHG Vent. Rate : 092 BPM Atrial Rate : 119 BPM P-R Int : 000 ms QRS Dur : 130 ms QT Int : 398 ms P-R-T Axes : 000 -35 086 degrees QTc Int : 492 ms Atrial fibrillation Left axis deviation Left ventricular hypertrophy with QRS widening Abnormal ECG When compared with ECG of 10-JAN-2008 15:22, Atrial fibrillation has replaced Sinus rhythm QRS duration has increased Nonspecific T wave abnormality no longer evident in Inferior leads Nonspecific T wave abnormality, improved in Lateral leads QT has lengthened Confirmed by Leo Paige ([id number]) on 05/06/2021 2:50:56 PM Referred By: REFERRED SELF Confirmed By:Simone Paige
[2021-05-06] MEDS: ALFUZOSIN HCL 10 MG TAB PO SCH (14:57)
[2021-05-06] MEDS: MAGNESIUM OXIDE 400 MG TAB PO SCH (14:57)
--- NOTE | 2021-05-06 15:03 | Anesthesiology Progress Note ---
Date of Service May 06, 2021 Anesthesia Post Procedure Vital Signs Vital Signs: Temp Pulse Pulse Resp BP BP Pulse Ox 05/06/21 14:30 36.5 C 87 18 148/90 H 93 05/06/21 14:15 36.4 C L 85 16 145/95 H 97 05/06/21 14:00 88 16 144/88 H 97 05/06/21 13:50 90 16 153/77 H 98 05/06/21 13:43 36.1 C L 95 H 14 180/90 H 98 05/06/21 10:40 36.5 C 81 18 179/112 H 96 05/06/21 10:16 166/93 H 05/06/21 08:23 84 179/102 H 05/06/21 07:45 36.7 C 99 H 19 171/103 H 94 05/06/21 00:15 36.5 C 66 18 126/66 94 05/05/21 15:42 36.9 C 66 16 158/93 H 95 Pain Intensity Back: Pain Intensity: 1 Bilateral Lower Back: Pain Intensity: 1 Transfer of Care Handoff Completed per policy Notes Mental Status: alert / awake / arousable Patient Amnestic to Procedure: Yes Nausea / Vomiting: adequately controlled Pain: adequately controlled Airway Patency, RR, SpO2: stable & adequate BP & HR: stable & adequate Hydration State: stable & adequate Anesthetic Complications: no major complications apparent and Pt Satisfied with anesthetic care Notes: The patient is awake and comfortable.
[2021-05-06] MEDS: HYDROmorphone INJ 0.5 MG/0.5 ML SYR IV PRN ×2 (17:02→20:35)
[2021-05-06] MEDS ORDERED: COUGH DROP (SUGAR FREE) LOZ 24 LOZ/1 BOX BUCCAL ONE (17:05)
[2021-05-06] MEDS: oxyCODONE HCL IR 5 MG TAB (IMMEDIATE RELEASE) PO PRN (19:02)
[2021-05-06] MEDS: ceFAZolin 2000MG 2,000 MG/15 ML SYR IV SCH (20:35)
[2021-05-06] MEDS: DOCUSATE SODIUM/SENNA 50/8.6MG TAB PO SCH (20:35)
[2021-05-07] MEDS: SODIUM CHLORIDE 0.9% 1000ML 1,000 ML IV SCH (03:26)
[2021-05-07] MEDS: ceFAZolin 2000MG 2,000 MG/15 ML SYR IV SCH (05:18)
[2021-05-07] MEDS: POLYETHYLENE (MIRALAX) 17 GM PACK PO SCH ×4 (05:21→23:55)
[2021-05-07 07:49] LABS: Basophils # (auto) 0.02 K/uL (0-0.2); Basophils % (auto) 0.1 %; Hematocrit (blood only) 41.2 % (42-52); Hemoglobin 13.9 g/dL (14.0-18.0); Immature Granulocytes # (auto) 0.16 K/uL (0.00-0.02); Immature Granulocytes % (auto) 0.9 %; Lymphocytes # (auto) 1.03 K/uL (1.2-3.4); Lymphocytes % (auto) 5.8 %; Mean Corpuscular Hemoglobin 37.4 pg (25-34); Mean Corpuscular Hgb Conc 33.7 g/dL (32-36); Mean Corpuscular Volume 110.8 fL (80-100); Mean Platelet Volume 11.2 fL (7.4-10.4); Monocytes # (auto) 0.92 K/uL (0.11-0.59); Monocytes % (auto) 5.2 %; Platelet Count 235 K/uL (130-400); RDW Coefficient of Variation 17.2 % (11.5-14.5); RDW Standard Deviation 69.5 fL (36.4-46.3); Red Blood Count 3.72 M/uL (4.7-6.1); White Blood Count 17.73 K/uL (4.8-10.8)
[2021-05-07] MEDS: PANTOprazole 40 MG TAB PO SCH (07:54)
[2021-05-07] MEDS: BISOPROLOL FUMARATE 5 MG TAB PO SCH (07:54)
[2021-05-07] MEDS: dexAMETHasone 6 MG in SYRINGE 0 ML IV SCH (07:55)
[2021-05-07 08:14] LABS: BUN Creatinine Ratio 19.2 (10-20); Calcium 7.6 mg/dl (8.5-10.1); Creatinine Clr Calc Pharmacy 96.5 ml/min; Est GFR (African American) 99.4 ml/min; Est GFR (Non-African American) 85.8 ml/min; Macrocytosis Present; Potassium 3.9 mmol/L (3.5-5.1)
--- NOTE | 2021-05-07 10:27 | Orthopedic Progress Note ---
Date of Service May 07, 2021 Assessment & Plan (1) Myelopathy concurrent with and due to spinal stenosis of thoracic region: Plan: At this time we'll continue physical therapy monitor his CAITLIN operatively discharge home in the next few days. Admission and Anticipated Discharge Date Admission Date: May 05, 2021 Subjective Patient's back pain is controlled. Patient feels that his walking is somewhat improved. Physical Exam Physical Exam: Patient is sitting up in bed. He appears comfortable. He does have an established foot drop to the right lower extremity but good strength left lower extremity. Results & Data ([facility]) Vital Signs (Past 12 Hours) Vital Signs Temp Pulse Resp BP Pulse Ox 05/07/21 07:18 36.9 C 83 16 152/75 H 95 05/07/21 03:38 36.9 C 82 18 156/87 H 93 05/06/21 23:51 36.7 C 82 18 131/69 94
[2021-05-07] MEDS: MAGNESIUM OXIDE 400 MG TAB PO SCH (10:39)
[2021-05-07] MEDS: ALFUZOSIN HCL 10 MG TAB PO SCH (13:02)
--- NOTE | 2021-05-07 14:06 | Hospitalist Progress Note ---
Date of Service May 07, 2021 Assessment & Plan (1) Myelopathy concurrent with and due to spinal stenosis of thoracic region: Plan: POD#1 s/p T10-T11 decompression and fusion tomorrow by Dr. Saldaña Per ortho for pain control, wound care, anticoagulation and activities Monitor H&H (EBL 100ml, hgb 13.9 from pre-op 15.1) Continue incentive spirometry, PT/OT when appropriate (2) Chronic diastolic CHF (congestive heart failure): Plan: Echo 01/2021-mild LVH, EF 55-60%, severely dilated left atrium, moderately dilated right atrium Bumex held preoperatively Appears euvolemic - resume Bumex this evening (3) Atrial fibrillation: Plan: Rate controlled on bisoprolol Anticoagulated Eliquis, resume at the discretion of spine orthopedics (4) HTN (hypertension): Plan: BP mildly elevated, opimize pain control Resume ramipril tomorrow AM, continue bisoprolol (5) Rheumatoid arthritis: Plan: Hold Plaquenil for now (6) Alcohol use: Plan: Patient reports drinking 3-5 beers/day most days of the week No current signs of withdrawal, will monitor closely Awss protocol, prn ativan (7) DVT prophylaxis: Plan: TEDs/SCDs as per spine Ortho Pt was seen and examined in collaboration with Dr. Ceballos, please see addendum Thank you for this consultation. We will follow the patient with you during their hospital stay. You can reach a member of [facility] via the [facility] role in [place] Text. Admission and Anticipated Discharge Date Admission Date: May 05, 2021 Supervising Physician Co-Signing Physician Notes Pt is a 81 y/o M with hx of HFpEF, Afib on eliquis, HTN, RA (on hydroxychloroquine), Prior Lumbar surgery and b/l knee replacement admitted for thoracic spine surgery for Myelopathy with spinal stenosis of thoracic region. Consulted for medical management. Patient is s/p spinal [thoracis] decompression 05/[address] Saldaña. Patient is WBC count is likely secondary to steroid use. Agree with assessment and plan and examination as above. Patient seen and coordinated care with GABRIELLE Smith. I have seen and examined the patient and have discussed the case with the provider above. I agree with the assessment and plan as stated. Subjective Patient seen and examined in 354 bed 1. Feeling well today with minimal surgical site discomfort. Participating in therapy without issue. Denies any fever, chills, chest pain, shortness of breath, nausea, vomiting or abdominal p ain. Passing flatus, no bowel movement postoperatively. Review of Systems Review of Systems: At least ten systems reviewed and negative except as noted in the HPI. Physical Exam Physical Exam: Gen: WD/WN, NAD, sitting in bed, A&Ox3 HEENT: Normocephalic, atraumatic, conjunctivae moist, sclerae anicteric, mucous membranes moist Lung: Clear to Auscultation bilaterally, no wheezes/rales/rhonchi Heart: Regular rate, regular rhythm, no murmurs, rubs, or gallops Abdomen: Soft, NT, ND +BS x 4 Extremities: Spinal dressing c/d/i. +CAITLIN drain visualized. No edema Skin: Warm, no rash Results & Data Results & Data ([facility]) Vital Signs (Past 12 Hours) Vital Signs Temp Pulse Resp BP Pulse Ox 05/07/21 12:00 36.4 C L 93 H 16 154/96 H 93 05/07/21 07:18 36.9 C 83 16 152/75 H 95 05/07/21 03:38 36.9 C 82 18 156/87 H 93 Laboratory Results Short CBC 05/07/21 Range/Units 06:54 WBC 17.73 H (4.8-10.8) K/uL Hgb 13.9 L (14.0-18.0) g/dL Hct 41.2 L (42-52) % Plt Count 235 (130-400) K/uL BMP 05/07/21 06:54 Sodium 134 L Potassium 3.9 Chloride 103 Carbon Dioxide 25 BUN 14 Creatinine 0.73 Glucose 125 H Calcium 7.6 L Diagnostic Findings Chest X-Ray 05/05/21 14:10 XR chest 1V portable CLINICAL HISTORY: Preoperative evaluation. COMPARISON STUDY: Chest radiograph January 10, 2008. FINDINGS: Lung volumes are normal. There is no pneumothorax or pleural effusion. Linear bibasilar opacities favor atelectasis. No consolidation to suggest pneumonia. Cardiac size is within normal limits. IMPRESSION: No acute cardiopulmonary findings. ACT 112: Negative or not required by law. Electronically signed by: Ruddy Lu M.D. 05/05/2021 3:21 PM Thoracic Spine X-Ray 05/06/21 10:55 INTRAOPERATIVE RADIOGRAPHS CLINICAL HISTORY: T10-T11 spinal fusion. Fluoroscopy time: 41 seconds. FINDINGS: 2 spot fluoroscopic images of the lower thoracic spine are presented. There is been laminectomy and posterior fusion at a lower thoracic level reportedly T10-T11. Interpedicular screws are in place. The orthopedic hardware appears intact. IMPRESSION: Intraoperative images from lower thoracic spinal fusion as above. Electronically signed by: Salinas Smith M.D. 05/06/2021 2:09 PM
[2021-05-07] MEDS: HYDROmorphone INJ 0.5 MG/0.5 ML SYR IV PRN (19:44)
[2021-05-07] MEDS: BUMETANIDE 1 MG TAB PO SCH (20:52)
[2021-05-07] MEDS: DOCUSATE SODIUM/SENNA 50/8.6MG TAB PO SCH (20:53)
[2021-05-08] MEDS: POLYETHYLENE (MIRALAX) 17 GM PACK PO SCH ×3 (06:04→17:05)
[2021-05-08] MEDS: HYDROmorphone INJ 0.5 MG/0.5 ML SYR IV PRN (06:42)
[2021-05-08] MEDS: BISOPROLOL FUMARATE 5 MG TAB PO SCH (08:25)
[2021-05-08] MEDS: PANTOprazole 40 MG TAB PO SCH (08:25)
[2021-05-08] MEDS: ENALAPRIL MALEATE 10 MG TAB PO SCH (08:25)
[2021-05-08] MEDS: dexAMETHasone 6 MG in SYRINGE 0 ML IV SCH (08:25)
[2021-05-08] MEDS: BUMETANIDE 1 MG TAB PO SCH ×3 (08:25→19:54)
[2021-05-08 08:33] LABS: Hematocrit (blood only) 38.1 % (42-52); Hemoglobin 12.8 g/dL (14.0-18.0); Mean Corpuscular Hgb Conc 33.6 g/dL (32-36); Mean Corpuscular Volume 110.1 fL (80-100); Mean Platelet Volume 11.5 fL (7.4-10.4); Nucleated RBC # (auto) 0.03 K/uL (0-0); Nucleated RBC % (auto) 0.2 %; Platelet Count 221 K/uL (130-400); RDW Coefficient of Variation 17.6 % (11.5-14.5); RDW Standard Deviation 71.3 fL (36.4-46.3); Red Blood Count 3.46 M/uL (4.7-6.1); White Blood Count 14.15 K/uL (4.8-10.8)
[2021-05-08] MEDS ORDERED: BUMETANIDE 1 MG TAB PO SCH (09:00)
[2021-05-08 09:06] LABS: BUN Creatinine Ratio 23.7 (10-20); Calcium 7.7 mg/dl (8.5-10.1); Creatinine Clr Calc Pharmacy 92.7 ml/min; Est GFR (African American) 97.8 ml/min; Est GFR (Non-African American) 84.4 ml/min; Potassium 3.6 mmol/L (3.5-5.1)
--- NOTE | 2021-05-08 10:47 | Orthopedic Progress Note ---
Date of Service May 08, 2021 Assessment & Plan (1) Myelopathy concurrent with and due to spinal stenosis of thoracic region: Plan: At this time we will continue physical therapy monitor his CAITLIN output anticipate possible discharge home tomorrow. We will advance his bowel regimen. Admission and Anticipated Discharge Date Admission Date: May 05, 2021 Subjective Back pain controlled leg symptoms improving Physical Exam Physical Exam: Patient is in bed. He has good strength testing left lower extremity right foot drop is present. Is comfortable. Results & Data ([facility]) Vital Signs (Past 12 Hours) Vital Signs Temp Pulse Resp BP Pulse Ox 05/08/21 07:01 36.7 C 73 18 102/57 L 93
[2021-05-08] MEDS: MAGNESIUM OXIDE 400 MG TAB PO SCH (12:03)
[2021-05-08] MEDS: oxyCODONE HCL IR 5 MG TAB (IMMEDIATE RELEASE) PO PRN ×2 (13:04→19:58)
[2021-05-08] MEDS: ALFUZOSIN HCL 10 MG TAB PO SCH (13:05)
--- NOTE | 2021-05-08 14:41 | Hospitalist Progress Note ---
Date of Service May 08, 2021 Assessment & Plan (1) Myelopathy concurrent with and due to spinal stenosis of thoracic region: Plan: POD#2 s/p T10-T11 decompression and fusion tomorrow by Dr. Saldaña Per ortho for pain control, wound care, anticoagulation and activities Monitor H&H (EBL 100ml, hgb 12.8, hgb of 13.9 yesterday) Continue incentive spirometry, PT/OT when appropriate (2) Chronic diastolic CHF (congestive heart failure): Plan: Echo 01/2021-mild LVH, EF 55-60%, severely dilated left atrium, moderately dilated right atrium Bumex held preoperatively Appears euvolemic - Bumex resumed (3) Atrial fibrillation: Plan: Rate controlled on bisoprolol Anticoagulated on Eliquis, okay to resume tomorrow morning per spine orthopedics (4) HTN (hypertension): Plan: BP normotensive Resumes ramipril, continue bisoprolol (5) Rheumatoid arthritis: Plan: Hold Plaquenil for now (6) Alcohol use: Plan: Patient reports drinking 3-5 beers/day most days of the week No current signs of withdrawal, will monitor closely Awss protocol, prn ativan (7) DVT prophylaxis: Plan: TEDs/SCDs as per spine Ortho Pt was seen and examined in collaboration with Dr. Ceballos, please see addendum Thank you for this consultation. We will follow the patient with you during their hospital stay. You can reach a member of the [facility] Hospitalist Team 01/11 [facility] [place] Text. Admission and Anticipated Discharge Date Admission Date: May 05, 2021 Supervising Physician Co-Signing Physician Notes Pt is a 81 y/o M with hx of HFpEF, Afib on eliquis, HTN, RA (on hydroxychloroquine), Prior Lumbar surgery and b/l knee replacement admitted for thoracic spine surgery for Myelopathy with spinal stenosis of thoracic region. Consulted for medical management. Patient is s/p spinal [thoracis] decompression 05/[address] Saldaña. Pt is moving gas but hasn't moved bowel, bowel regimen in place,expect to improve with physical therapy/movement. Patient is WBC count is likely secondary to steroid use. Agree with assessment and plan and examination as above. Patient seen and coordinated care with GABRIELLE Smith. I have seen and examined the patient and have discussed the case with the provider above. I agree with the assessment and plan as stated. Subjective Patient seen and examined in 354-1. Feeling well today, some surgical site discomfort. Participating in therapy, ambulating in the halls. Denies any fever, chills, chest pain, shortness of breath. Passing flatus, no bowel movement postoperatively. Feeling distended but no nausea, vomiting or pain. Review of Systems Review of Systems: At least ten systems reviewed and negative except as noted in the HPI. Physical Exam Physical Exam: Gen: WD/WN, NAD, sitting in bed, A&Ox3 HEENT: Normocephalic, atraumatic, conjunctivae moist, sclerae anicteric, mucous membranes moist Lung: Clear to Auscultation bilaterally, no wheezes/rales/rhonchi Heart: Regular rate, regular rhythm, no murmurs, rubs, or gallops Abdomen: Distended but NT, +BS x 4 Extremities: Spinal dressing c/d/i. +CAITLIN drain visualized. No edema Skin: Warm, no rash Results & Data Results & Data ([facility]) Vital Signs (Past 12 Hours) Vital Signs Temp Pulse Resp BP Pulse Ox 05/08/21 07:01 36.7 C 73 18 102/57 L 93 Laboratory Results Short CBC 05/08/21 Range/Units 07:27 WBC 14.15 H (4.8-10.8) K/uL Hgb 12.8 L (14.0-18.0) g/dL Hct 38.1 L (42-52) % Plt Count 221 (130-400) K/uL [facility] 05/08/21 07:27 Sodium 136 Potassium 3.6 Chloride 102 Carbon Dioxide 30 BUN 18 Creatinine 0.76 Glucose 102 H Calcium 7.7 L Diagnostic Findings Chest X-Ray 05/05/21 14:10 XR chest 1V portable CLINICAL HISTORY: Preoperative evaluation. COMPARISON STUDY: Chest radiograph January 10, 2008. FINDINGS: Lung volumes are normal. There is no pneumothorax or pleural effusion. Linear bibasilar opacities favor atelectasis. No consolidation to suggest pneumonia. Cardiac size is within normal limits. IMPRESSION: No acute cardiopulmonary findings. ACT 112: Negative or not required by law. Electronically signed by: Ruddy Lu M.D. 05/05/2021 3:21 PM Thoracic Spine X-Ray 05/06/21 10:55 INTRAOPERATIVE RADIOGRAPHS CLINICAL HISTORY: T10-T11 spinal fusion. Fluoroscopy time: 41 seconds. FINDINGS: 2 spot fluoroscopic images of the lower thoracic spine are presented. There is been laminectomy and posterior fusion at a lower thoracic level reportedly T10-T11. Interpedicular screws are in place. The orthopedic hardware appears intact. IMPRESSION: Intraoperative images from lower thoracic spinal fusion as above. Electronically signed by: Salinas Smith M.D. 05/06/2021 2:09 PM
[2021-05-08] MEDS: DOCUSATE SODIUM/SENNA 50/8.6MG TAB PO SCH (19:58)
[2021-05-09] MEDS ORDERED: APIXABAN 5 MG TABLET PO SCH (09:00)
[2021-05-09] MEDS: oxyCODONE HCL IR 5 MG TAB (IMMEDIATE RELEASE) PO PRN (09:40)
[2021-05-09] MEDS: ENALAPRIL MALEATE 10 MG TAB PO SCH (09:41)
[2021-05-09] MEDS: BISOPROLOL FUMARATE 5 MG TAB PO SCH (09:41)
[2021-05-09] MEDS: BUMETANIDE 1 MG TAB PO SCH (09:41)
[2021-05-09] MEDS: PANTOprazole 40 MG TAB PO SCH (09:42)
[2021-05-09] MEDS: dexAMETHasone 6 MG in SYRINGE 0 ML IV SCH (09:42)
--- NOTE | 2021-05-09 10:51 | Discharge Summary ---
Date of Service May 09, 2021 Admission HPI Per Admitting Provider This is an 81-year-old male the presents with steady decline in status. He does have known thoracic myelopathy. 6 carotid numbness and tingling in the bilateral extremities with progressive strength deficit and balance decline. He is here with worsening of his condition. Principal Diagnosis Thoracic spinal stenosis with myelopathy Discharge Data Allergies Allergy/AdvReac Type Severity Reaction Status Date / Time No Known Allergies Allergy Unknown Verified 05/05/21 09:38 Consultations 05/05/21 09:04 ED Decision to Admit Stat 05/05/21 12:24 Consult Internal Medicine Routine Procedures Performed Operation Date: 05/06/21 10:55 Actual Procedures p T10-T11 Decompression Fusion(Not Applicable) - Per Saldaña DO Ordered Studies 05/06/21 10:55 FL thoracic spine 2V Routine Hospital Course (1) Myelopathy concurrent with and due to spinal stenosis of thoracic region: Patient 1 thoracic decompression fusion tolerated this well was taken orthopedic for postoperative. Postop day 1 he was up and ambulating with physical therapy progressed the postop day #2 postop day #3 he was steadily improving. Pain well controlled. Bowels working. CAITLIN drain decreasing appropriately. Subsequently discharged home. Discharge orders instructions were on the chart for further review. Total Time Total Time Spent Total Time Spent (In Minutes): 20 minutes Discharge Plan Discharge Items Patient Disposition: Home - Self-Care Reason For Visit: THORACI MYELOPATHY Discharge Diagnosis: Thoracic spinal stenosis with myelopathy Activity: As commented below Non-emergency contact: Primary Care Provider Call non-emergency contact if: you have any medication questions Follow-up/Referrals: Per Saldaña DO [Surgeon] - 05/20/21 12:20 pm (APPT WITH [facility]) Salinas Garza D.O. [Primary Care Provider] - Diet: Regular Addtl Attending Provider Instructions: ACTIVITY RECOMMENDATIONS: SELF CARE INSTRUCTIONS AFTER THORACIC/LUMBAR FUSIONS 1. You may walk to your tolerance. It is good exercise for your legs and back. Expect some back and intermittent leg aches and pains. 2. You may perform "counter-top" level activities (make a sandwich, jeison with a project, etc.). 3. No bending or lifting of more than 10 pounds or back twisting of any nature (roll like a log when turning in bed). 4. You may ride in a car for 20-30 minutes at a time. No driving until after your first visit with your doctor. 5. Frequent changes of position and restricting sitting to 30 minutes at a time will help limit the amount of back spasms and stiffness you may experience. 6. You may discontinue the use of ambulatory aids (cane, crutches, etc.) once your strength and confidence allow. 7. You may networking specialist the shower and let water strike your incision when you arrive home at least once daily. Do not take a tub bath, sit in a hot tub or go into a swimming pool until after your first recheck in the office. SPECIAL CARE INSTRUCTIONS: VERY IMPORTANT TO READ AND REVIEW A. Your surgical incision has been closed with a cosmetic suture under the skin that will dissolve in about 6 weeks. In 14 days, you can use a pair of clean scissors and cut the suture that is left outside of the skin at the ends of your incision. 1. The small skin tapes can be removed 7 days after surgery if they have not fallen off by that point. 2. You may keep the wound open to air as much as possible to promote healing after post-op day number 5 unless told otherwise by your doctor. 3. If you think the wound looks like it is becoming infected (redness or worsening drainage) and/or you are experiencing fever, chill or worsening back pain and muscle spasms, contact the office so that we may evaluate you as soon as possible. B. Complications are uncommon, but please contact us if you have any signs or symptoms of: 1. wound infection (fever higher than 102.5 degrees F, redness, separation of wound, drainage, or increasing pain from the incision) 2. blood clots in legs (pain, swelling, redness and warmth in legs) 3. urinary tract infection (fever higher than 102.5 degrees F, burning upon urination or increased frequency of urination) 4. nerve problems (inability to walk on your toes or heels, numbness, loss of bowel or bladder control) 5. any other symptoms that concern you C. Please call the office at if you have any concerns or questions about your operation or recovery. D. No smoking! Smoking drastically decreases the chance of a solid fusion. E. Do not take any anti-inflammatory medications (Indocin, Advil, Motrin, Aspirin, Naprosyn, etc.) as these may inhibit the chance of a solid fusion. Tylenol is okay to take for pain. MANAGING PAIN AFTER SPINAL SURGERY 1. Narcotic medication is intended for short-term use and will be provided for surgical pain. Surgical pain usually lasts for a period of 4-6 weeks. Narcotic medication includes Percocet, Vicodin, Darvocet, Tylenol #3 or Lortab. 2. Longer-term pain is more appropriately treated with non-narcotic medication such as Tylenol ES. 3. Muscle spasm is not appropriately treated with narcotics. Muscle relaxers such as Soma, Flexeril or Skelaxin can be used along with Tylenol ES. 4. Remember that we all live with some "aches and pains". This is not unusual or uncommon after an injury or as we get older. a. Back pain is expected and may include muscle spasms for 4 to 6 weeks after surgery. The pain should gradually improve. If the pain worsens for no apparent reason, please contact the office. b. Intermittent leg pain may also be experienced and should not be concerned about unless it worsens for no apparent reason. If so, please contact the office. 5. We will provide appropriate medication within the normal guidelines of their prescribed use. We will also be very cautious and aware of potential abuse and extended duration of patients' medication needs. a. Pain medications are for your comfort and to assist with sleep and rest so that the tissue can heal. They are not provided in order to return to normal activity and should not be used through the day. To do so or worsening pain at night can result from ongoing tissue damage and development of tolerance to the prescribed medicine. 6. Please allow 2-3 days to process refills. Prescriptions will not be mailed but must be picked up at the office. FOLLOW UP VISIT: Keep your scheduled follow-up appointment. Any questions, please call the office at . Pending Studies at Discharge: No Stand-Alone Forms: My [employer], Smoking Cessation Medications and DC Order Prescriptions: New oxycodone 5 mg tablet 5 mg PO Q6H PRN (Reason: pain, severe) Qty: 30 RF: 0 tramadol 50 mg tablet 50 mg PO Q6H PRN (Reason: pain, moderate) Qty: 30 RF: 0 Continued cyanocobalamin (vitamin B-12) [Vitamin B-12] 1,000 mcg Tablet 1,000 mcg PO QDL RF: 0 bisoprolol fumarate 5 mg tablet 2.5 mg PO QAM RF: 0 pantoprazole 40 mg tablet,delayed release (DR/EC) 40 mg PO QAM RF: 0 bumetanide 1 mg tablet 1 mg PO TID RF: 0 zinc 50 mg Tablet 50 mg PO QDL RF: 0 hydroxychloroquine 200 mg tablet 200 mg PO BID RF: 0 folic acid 800 mcg Tablet 0.8 mg PO QDL RF: 0 ramipril 10 mg capsule 10 mg PO UD RF: 0 cholecalciferol (vitamin D3) [Vitamin D3] 25 mcg (1,000 unit) Capsule 25 mcg PO BID RF: 0 alfuzosin 10 mg tablet extended release 24 hr 10 mg PO DAILY@1400 RF: 0 calcium carbonate-vitamin D3 [Calcium 500 + D] 500 mg-5 mcg (200 unit) Tablet 1 tab PO QDL RF: 0 vitamin E (dl, acetate) 180 mg (400 unit) Capsule 180 mg PO QAM RF: 0 coQ10 (ubiquinol) 200 mg Capsule 200 mg PO QDL RF: 0 testosterone 30 mg/actuation (1.5 mL) solution in metered pump w/ana 1 pump topical QAM RF: 0 magnesium oxide 400 mg magnesium Tablet 400 mg PO QDL RF: 0 Eliquis 5 mg tablet 5 mg PO BID RF: 0 Discharge Orders: Discharge Order (Routine); Ordered 05/09/21 Ordered By: Per Saldaña Admission Data Admit Date/Time: 05/05/21 09:28 Attending Provider: Per Saldaña Admit Provider: Per Saldaña Primary Care Provider: Salinas Garza Other Providers: Karla Ceballos ; Per Saldaña ; Philly Recinos ; Sarah Cm
[2021-05-09] MEDS: MAGNESIUM OXIDE 400 MG TAB PO SCH (10:57)
--- NOTE | 2021-05-09 17:08 | Hospitalist Progress Note ---
Date of Service May 09, 2021 Assessment & Plan (1) Myelopathy concurrent with and due to spinal stenosis of thoracic region: Plan: #. Acute blood loss anemia POD#3 s/p T10-T11 decompression and fusion by Dr. Saldaña Per ortho for pain control, wound care, anticoagulation and activities Monitor H&H [EBL 100ml, hgb 12.8 after surgery.] Continue incentive spirometry, working with PT and OT (2) Chronic diastolic CHF (congestive heart failure): Plan: Echo 01/2021-mild LVH, EF 55-60%, severely dilated left atrium, moderately dilated right atrium Bumex held preoperatively Appears euvolemic -continue with Bumex (3) Atrial fibrillation: Plan: Rate controlled on bisoprolol Anticoagulated on Eliquis, resumed Eliquis today with orthopedics recommendation. (4) HTN (hypertension): Plan: BP normotensive Continue ramipril, continue bisoprolol (5) Rheumatoid arthritis: Plan: Hold Plaquenil for now (6) Alcohol use: Plan: Patient reports drinking 3-5 beers/day most days of the week No current signs of withdrawal, will monitor closely Awss protocol, prn ativan (7) DVT prophylaxis: Plan: TEDs/SCDs as per spine Ortho Thank you for this consultation. We will follow the patient with you during their hospital stay. You can reach a member of the [facility] Hospitalist Team 01/11 via the [employer] Hospitalist role in [place] Text. Admission and Anticipated Discharge Date Admission Date: May 05, 2021 Subjective Patient seen and examined at bedside for medicine consult for status post thoracis decompression. Patient lying in bed, on room air, NAD, no new acute events overnight. Patient reports pain under control. patient reports moving bowel after the surgery. Patient denies any fever/chills/chest pain/palpitation/other review of symptoms. Physical Exam Physical Exam: GENERAL: Alert and oriented x3. NAD, on RA. HEENT: No pallor, no icterus. Pupils equal, round and reactive to light. Oral mucosa moist. NECK: No JVD, no neck masses. HEART: S1 and S2 heard. Regular rate and rhythm. No murmur, no gallop. RESPIRATORY SYSTEM: Normal AP diameter. No accessory muscle use. No wheezing, no crackles. ABDOMEN: Soft, bowel sounds present, nontender, no distention. CENTRAL NERVOUS SYSTEM: No facial droop. Speech is clear. Obeys simple commands. Moves extremities. EXTREMITIES: No edema, no erythema seen. Back with clean dressings without soakage. CAITLIN drain with minimal serosanguineous collection noted. Results & Data Results & Data ([facility]) Vital Signs (Past 12 Hours) Vital Signs Temp Pulse Pulse Resp BP BP Pulse Ox 05/09/21 11:19 36.7 C 64 88 18 102/57 L 149/71 H 95 05/09/21 08:53 36.7 C 88 18 149/71 H 95
== END 2021-05-09 14:33 | disposition home or self-care (01) | DRG 460 ==
LOC: ED 08:33 → 3W 09:28

== ENCOUNTER 2021-05-19 13:02 | Inpatient (IN) ==
[2021-05-19 14:51] LABS: Hematocrit (blood only) 42.1 % (42-52); Hemoglobin 14.8 g/dL (14.0-18.0); Mean Corpuscular Hemoglobin 37.4 pg (25-34); Mean Corpuscular Hgb Conc 35.2 g/dL (32-36); Mean Corpuscular Volume 106.3 fL (80-100); Mean Platelet Volume 10.3 fL (7.4-10.4); Platelet Count 370 K/uL (130-400); RDW Coefficient of Variation 17.2 % (11.5-14.5); RDW Standard Deviation 66.7 fL (36.4-46.3); Red Blood Count 3.96 M/uL (4.7-6.1); White Blood Count 17.73 K/uL (4.8-10.8)
[2021-05-19 15:06] LABS: Albumin Globulin Ratio 1.4 (0.9-2); Albumin Level 3.6 gm/dl (3.4-5.0); BUN Creatinine Ratio 15.7 (10-20); Bilirubin,Total 1.3 mg/dl (0.2-1.0); Calcium 8.5 mg/dl (8.5-10.1); Creatinine Clr Calc Pharmacy 102.2 ml/min; Est GFR (African American) 101.2 ml/min; Est GFR (Non-African American) 87.3 ml/min; Globulin 2.5 gm/dl (2.5-4.0); Potassium 3.5 mmol/L (3.5-5.1); Total Protein 6.1 gm/dl (6.0-8.3)
[2021-05-19 15:13] LABS: ALC (manual) 0.62 K/uL (1.2-3.4); ANC (manual) 14.47 K/uL (1.4-6.5); Basophils # (manual) 0.32 K/uL (0-0.2); Basophils % (manual) 1.8 %; Eosinophils # (manual) 0.46 K/uL (0-0.5); Eosinophils % (manual) 2.6 %; Lymphocytes # (manual) 0.62 K/uL (1.2-3.4); Lymphocytes % (manual) 3.5 %; Metamyelocytes # (manual) 0.62 K/uL (0-0); Metamyelocytes % (manual) 3.5 %; Monocytes # (manual) 1.24 K/uL (0.11-0.59); Neutrophils # (manual) 14.47 K/uL (1.4-6.5); Neutrophils % (manual) 81.6 %; RBC Morphology Unremarkable
--- NOTE | 2021-05-19 15:34 | Emergency Department Note ---
Impression & Plan Back pain, Ambulatory dysfunction, Atrial fibrillation ED Provider Note Provider: Polo Mosley MD DATE OF SERVICE: 05/19/2021 CHIEF COMPLAINT: Falls HISTORY OF PRESENT ILLNESS: Patient is a 81-year-old gentleman past medical history of CHF, atrial fibrillation on Eliquis, and recent back surgery on [address] Saldaña here presenting after multiple falls. States that after surgery he was doing okay but his left leg seemed a little bit weak. Has had significant ability since getting home more than a dozen falls. Denies striking his head any of these. Denies any headache or dizziness. States it feels like his left leg is giving out on him some. Patient states that he was using some of the tramadol oxycodone for pain but stopped as this medicine can "kill you ". Patient states that he is having a lot of difficulty at home and try to reach out to various home services without help. Patient denies any fevers or chest pain. He denies any nausea or vomiting. Reports he has chronic low back pain. Patient states he does not feel that he is safe at home at the current time. REVIEW OF SYSTEMS: A total of 10 review of systems was obtained and negative except as stated above in the HPI. PAST MEDICAL HISTORY: As noted above MEDICATIONS: Reviewed home medication SOCIAL HISTORY: Lives at home with PHYSICAL EXAM: GENERAL: alert and oriented in no acute distress on stretcher Head: normocephalic and atraumatic EYES: No injection, discharge or icterus. NECK: Trachea midline. Supple. ENT: Mucous membranes pink and moist. LUNGS: Airway patent. No retractions. Breath sounds clear with good air entry bilaterally. HEART: Regular rate and rhythm. No chest wall tenderness ABDOMEN: Soft and non-tender, without guarding or rebound. No hepatosplenomegaly or masses BACK: Midline surgical scar from lumbar thoracic region with some contusion of the subcutaneous tissue of the lower lumbar midline to lateral aspect. Some slight tenderness in this area. No significant erythema or fluctuance of the wound. No dehiscence noted. SKIN: Acyanotic, warm, dry, without rashes EXTREMITIES: Without swelling, tenderness or deformity NEUROLOGICAL: No aphasia. No facial droop or slurred speech. Gross sensation to touch intact in both legs. Patient with some mild flexion weakness in the left lower leg. GCS 15. Patient's laboratory studies and imaging reviewed. Differential includes Infection, dehydration, metabolic abnormality, hypo/hyperglycemia, electrolyte disturbance, anemia, hypoxia, cardiac sources, intracerebral event, toxicologic, neurologic, as well as other pathologies. IMPRESSION/MEDICAL DECISION MAKING: Patient without dehiscence or obvious fluctuance of a large wound to the back. No fevers reported. Has had some elevated white count since the surgery even prior to discharge. Patient without significant numbness but some weakness in termittently of the left leg. Denies striking his head. Denies headache or visual changes. Patient denies any chest pain or shortness of breath. Basic labs otherwise unremarkable. Fairly clear and specific he did not fall and strike his head and denies any headache, dizziness, nausea/vomiting, or visual changes. Do not believe we need at this time imaging of the head and cervical spine. X-rays obtained of the thoracic and lumbar spine. Has been having significant difficulty getting around at home and the patient states he does not feel safe to go home at this point. Seen with the resident physician. Reached out to Dr. Saldaña's team. Believe the patient requires further care and likely additional rehab. Back pain is fairly constant without reports of fever initial spinal imaging beyond x-rays at this point as a lower suspicion for postop infection. Not having urinary retention concerns or saddle anesthesia. Dr. Saldaña will readmit the patient. Will order MRI of the thoracic spine to further evaluate in discussion with Dr. Saldaña any spine changes since the surgery. Patient updated. DIAGNOSIS: Back pain, ambulatory dysfunction DISPOSITION: Dr. Saldaña to admit the patient Patient was agreeable with this plan. Past Med/Surg History Medical History Atrial fibrillation Chronic diastolic CHF (congestive heart failure) HTN (hypertension) Rheumatoid arthritis Surgical History History of back surgery History of eye surgery History of total left knee replacement History of total right knee replacement Family History Father Stroke Mother Hypertension Social History (Updated 05/05/21 @ 14:57 by DELIA Bryan) Smoking Status: Former smoker Hx Alcohol Use: Yes Alcohol type: beer Alcohol Intake Frequency: 4 or More x per/Week Hx Substance Use: No Preferred Language: Kiswahili Communication Ability: Effective Saddle Mechanic Required: No Beliefs That Will Affect Care: None marital status: / Current Living Situation: Alone How many Children do You have: 0 Feels Safe at Home: Yes Assistive Devices: Glasses and Walker Allergies Allergies Allergy/AdvReac Type Severity Reaction Status Date / Time No Known Allergies Allergy Unknown Verified 05/19/21 15:24 Home Meds Home Medications Medication Instructions Recorded Confirmed alfuzosin 10 mg tablet,extended 10 mg PO QPM 05/05/21 05/19/21 release 24 hr apixaban 5 mg tablet (Eliquis) 5 mg PO BID 05/05/21 05/19/21 bisoprolol fumarate 5 mg tablet 2.5 mg PO QAM 05/05/21 05/19/21 bumetanide 1 mg tablet 1 mg PO BID 05/05/21 05/19/21 calcium carbonate 500 mg-vitamin 1 tab PO QDL 05/05/21 05/19/21 D3 5 mcg (200 unit) tablet (Calcium 500 + D) cholecalciferol (vitamin D3) 25 50 mcg PO DAILY 05/05/21 05/19/21 mcg (1,000 unit) capsule (Vitamin D3) coQ10 (ubiquinol) 200 mg capsule 200 mg PO QDL 05/05/21 05/19/21 cyanocobalamin (vitamin B-12) 1,000 mcg PO QDL 05/05/21 05/19/21 1,000 mcg tablet (Vitamin B-12) folic acid 800 mcg tablet 0.8 mg PO QDL 05/05/21 05/19/21 hydroxychloroquine 200 mg tablet 200 mg PO BID 05/05/21 05/19/21 magnesium oxide 400 mg PO QDL 05/05/21 05/19/21 ramipril 10 mg capsule 10 mg PO BID 05/05/21 05/19/21 testosterone 30 mg/actuation (1.5 3 pump TOPICAL QAM 05/05/21 05/19/21 mL) transderm solution metered pump vitamin E (dl, acetate) 180 mg 180 mg PO QAM 05/05/21 05/19/21 (400 unit) capsule zinc 50 mg tablet 50 mg PO QDL 05/05/21 05/19/21 acetaminophen 650 mg 1,300 mg PO DIRECTED PRN 05/19/21 05/19/21 tablet,extended release ascorbic acid (vitamin C) 250 mg 250 mg PO DAILY 05/19/21 05/19/21 tablet (Vitamin C) selenium 200 mcg tablet 200 mcg PO DAILY 05/19/21 05/19/21 Results & Data (ED) Vital Signs Vital Signs - 24 hr 05/19/21 13:07 05/19/21 15:30 05/19/21 16:00 Temperature 36.5 C Temperature Source Temporal Artery Scan Pulse Rate 94 H 88 Pulse Rate [Radial] 90 Respiratory Rate 18 20 18 Respiratory Depth Normal Blood Pressure 131/81 152/75 H Blood Pressure [Right Arm] 145/94 H Blood Pressure Mean 97 100 Blood Pressure Mean [Right Arm] 111 Pulse Oximetry 96 95 98 Oxygen Delivery Method Room Air Room Air Room Air Sepsis Recent Fever Within 48 Hours No Sepsis New/Unexplained Change in Mental Status No Sepsis Action Taken by Nursing No Action Required Laboratory Data Result diagrams: 05/19/21 13:28 05/19/21 13:28 Lab Results 05/19/21 05/19/21 05/19/21 Range/Units 13:28 13:28 17:06 WBC 17.73 H (4.8-10.8) K/uL RBC 3.96 L (4.7-6.1) M/uL Hgb 14.8 (14.0-18.0) g/dL Hct 42.1 (42-52) % MCV 106.3 H (80-100) fL MCH 37.4 H (25-34) pg MCHC 35.2 (32-36) g/dL RDW Std Deviation 66.7 H (36.4-46.3) fL RDW Coeff of Nora 17.2 H (11.5-14.5) % Plt Count 370 (130-400) K/uL MPV 10.3 (7.4-10.4) fL Neutrophils % (Manual) 81.6 % Lymphocytes % (Manual) 3.5 % Monocytes % (Manual) 7.0 % Eosinophils % (Manual) 2.6 % Basophils % (Manual) 1.8 % Metamyelocytes % (Man) 3.5 % Neutrophils # (Manual) 14.47 H (1.4-6.5) K/uL Total Absolute Neuts 14.47 H (1.4-6.5) K/uL Lymphocytes # (Manual) 0.62 L (1.2-3.4) K/uL Total Abs Lymphocytes 0.62 L (1.2-3.4) K/uL Monocytes # (Manual) 1.24 H (0.11-0.59) K/uL Eosinophils # (Manual) 0.46 (0-0.5) K/uL Basophils # (Manual) 0.32 H (0-0.2) K/uL Metamyelocytes # (Man) 0.62 H (0-0) K/uL RBC Morphology Unremarkable Sodium 132 L (136-145) mmol/L Potassium 3.5 (3.5-5.1) mmol/L Chloride 95 L (98-107) mmol/L Carbon Dioxide 29 (21-32) mmol/L Anion Gap 8 (3-11) BUN 11 (6-23) mg/dl Creatinine 0.70 (0.6-1.4) mg/dl Est Cr Clr Drug Dosing 102.2 ml/min Est GFR ( Amer) 101.2 ml/min Est GFR (Non-Af Amer) 87.3 ml/min BUN/Creatinine Ratio 15.7 (10-20) Glucose 95 (70-99(Fasting)) mg/dl Calcium 8.5 (8.5-10.1) mg/dl Total Bilirubin 1.3 H (0.2-1.0) mg/dl AST 34 (13-39) U/L ALT 34 (7-52) U/L Alkaline Phosphatase 56 (34-104) U/L Total Protein 6.1 (6.0-8.3) gm/dl Albumin 3.6 (3.4-5.0) gm/dl Globulin 2.5 (2.5-4.0) gm/dl Albumin/Globulin Ratio 1.4 (0.9-2) Lipase 41 (11-82) U/L SARS-CoV-2, RNA, NAAT NEGATIVE (NEGATIVE) Imaging Data Radiologist's Impression: Lumbar Spine X-Ray 05/19/21 14:39 XR lumbar spine 2-3V, XR thoracic spine 3V routine CLINICAL HISTORY: leg weakness TECHNIQUE: 2 views of the thoracic and lumbar spine were obtained. Comparison: None available at the time of this dictation. FINDINGS: T10-T11 posterior fixation hardware is seen. The alignment is anatomic. Degenerative changes are seen in the lumbar spine. No acute fractures are seen. No soft tissue abnormality is seen. IMPRESSION: Severe degenerative changes without evidence of acute fracture. ACT 112: Negative or not required by law. Electronically signed by: Yoshi Castillo M.D. 05/19/2021 3:35 PM Thoracic Spine X-Ray 05/19/21 14:39 XR lumbar spine 2-3V, XR thoracic spine 3V routine CLINICAL HISTORY: leg weakness TECHNIQUE: 2 views of the thoracic and lumbar spine were obtained. Comparison: None available at the time of this dictation. FINDINGS: T10-T11 posterior fixation hardware is seen. The alignment is anatomic. Degenerative changes are seen in the lumbar spine. No acute fractures are seen. No soft tissue abnormality is seen. IMPRESSION: Severe degenerative changes without evidence of acute fracture. ACT 112: Negative or not required by law. Electronically signed by: Yoshi Castillo M.D. 05/19/2021 3:35 PM Discharge Plan Visit Data Chief Complaint: Fall Stated Complaint: fall, back and leg pain ED Provider: Polo Mosley ED Midlevel Provider: Kailash Silveira Discharge Problem: Back pain, Ambulatory dysfunction, Atrial fibrillation Patient Disposition: Being Evaluated by Surgeon Forms Stand Alone Forms: [facility] Prescriptions Prescriptions: No Action cyanocobalamin (vitamin B-12) [Vitamin B-12] 1,000 mcg Tablet 1,000 mcg PO QDL RF: 0 bisoprolol fumarate 5 mg tablet 2.5 mg PO QAM RF: 0 bumetanide 1 mg tablet 1 mg PO BID RF: 0 zinc 50 mg Tablet 50 mg PO QDL RF: 0 hydroxychloroquine 200 mg tablet 200 mg PO BID RF: 0 folic acid 800 mcg Tablet 0.8 mg PO QDL RF: 0 ramipril 10 mg capsule 10 mg PO BID RF: 0 cholecalciferol (vitamin D3) [Vitamin D3] 25 mcg (1,000 unit) Capsule 50 mcg PO DAILY RF: 0 alfuzosin 10 mg tablet extended release 24 hr 10 mg PO QPM RF: 0 calcium carbonate-vitamin D3 [Calcium 500 + D] 500 mg-5 mcg (200 unit) Tablet 1 tab PO QDL RF: 0 vitamin E (dl, acetate) 180 mg (400 unit) Capsule 180 mg PO QAM RF: 0 coQ10 (ubiquinol) 200 mg Capsule 200 mg PO QDL RF: 0 testosterone 30 mg/actuation (1.5 mL) solution in metered pump w/ana 3 pump topical QAM RF: 0 magnesium oxide 400 mg magnesium Tablet 400 mg PO QDL RF: 0 Eliquis 5 mg tablet 5 mg PO BID RF: 0 selenium 200 mcg Tablet 200 mcg PO DAILY RF: 0 acetaminophen [Tylenol Arthritis] 650 mg Tablet Extended Release 1,300 mg PO DIRECTED PRN (Reason: Pain) RF: 0 ascorbic acid (vitamin C) [Vitamin C] 250 mg Tablet 250 mg PO DAILY RF: 0 Referrals Referrals: Salinas Garza D.O. [Primary Care Provider] -
--- NOTE | 2021-05-19 15:37 | XRay Report ---
XR lumbar spine 2-3V, XR thoracic spine 3V routine CLINICAL HISTORY: leg weakness TECHNIQUE: 2 views of the thoracic and lumbar spine were obtained. Comparison: None available at the time of this dictation. FINDINGS: T10-T11 posterior fixation hardware is seen. The alignment is anatomic. Degenerative changes are seen in the lumbar spine. No acute fractures are seen. No soft tissue abnormality is seen. IMPRESSION: Severe degenerative changes without evidence of acute fracture. ACT 112: Negative or not required by law. Electronically signed by: Yoshi Castillo M.D. 05/19/2021 3:35 PM
[2021-05-19] MEDS ORDERED: fentaNYL citrate 100 MCG/2 ML VIAL IV STA (19:38)
[2021-05-19] MEDS ORDERED: oxyCODONE HCL IR 5 MG TAB (IMMEDIATE RELEASE) PO PRN (21:52)
[2021-05-19] MEDS ORDERED: hydrOXYzine HCl 25 MG TAB PO PRN (21:52)
[2021-05-19] MEDS ORDERED: ACETAMINOPHEN 500 MG TAB PO PRN (21:52)
[2021-05-19] MEDS ORDERED: diphenhydrAMINE Capsule 25 MG CAP PO PRN (21:52)
[2021-05-19] MEDS ORDERED: SOD PHOSPHATE/SOD BIPHOSPHATE ENEMA 132 ML BTL PR PRN (21:52)
[2021-05-19] MEDS ORDERED: ALUMINUM/MAGNESIUM SUSP 30 ML UDC PO PRN (21:52)
[2021-05-19] MEDS ORDERED: MAGNESIUM HYDROXIDE SUSP 30 ML UDC PO PRN (21:52)
[2021-05-19] MEDS ORDERED: ONDANSETRON 4 MG OD TAB PO PRN (21:52)
[2021-05-19] MEDS ORDERED: NALOXONE HCL 0.4 MG/1 ML VIAL/CARP IV PRN (21:52)
[2021-05-19] MEDS ORDERED: ACETAMINOPHEN 1,000 MG/100 ML VIAL IV PRN (21:52)
[2021-05-19] MEDS ORDERED: PROMETHAZINE HCL 12.5 MG in SODIUM CHLORIDE 0.9% 50 ML IV PRN (21:52)
[2021-05-19] MEDS ORDERED: traMADol HCL 50 MG TABLET PO PRN (21:52)
[2021-05-19] MEDS ORDERED: METOCLOPRAMIDE HCL INJ 5 MG/ML 2 ML VIAL IV PRN (21:52)
[2021-05-19] MEDS ORDERED: ONDANSETRON INJ 2 MG/ML 2 ML VIAL IV PRN (21:52)
[2021-05-19] MEDS: SODIUM CHLORIDE 0.9% 1000ML 1,000 ML IV SCH (22:52)
[2021-05-19] MEDS: HYDROmorphone INJ 0.5 MG/0.5 ML SYR IV PRN (22:53)
[2021-05-19] MEDS: HYDROXYCHLOROQUINE SULFATE 200 MG TAB PO SCH (23:02)
[2021-05-19] MEDS: ENALAPRIL MALEATE 10 MG TAB PO SCH (23:02)
[2021-05-20] MEDS: HYDROmorphone INJ 0.5 MG/0.5 ML SYR IV PRN ×4 (04:20→21:00)
--- NOTE | 2021-05-20 08:30 | Hospitalist Consultation ---
Date of Consultation May 20, 2021 Assessment & Plan (1) Myelopathy concurrent with and due to spinal stenosis of thoracic region: (2) Back pain: (3) Ambulatory dysfunction: - S/p Thoracic decompression fusion of T10-T11 on 05/06, MRI being reviewed by Dr. Saldaña, tentatively prep for surgery today vs tomorrow for suspicion of postop infection vs more likely hematoma as the patient is on Eliquis, possible washout -Follow WBC, 17.73 on admission, will recheck labs, was elevated like this prior to surgery. - Negative covid - No fevers, chills, sweats (4) Atrial fibrillation: -Holding Eliquis, last dose was 2/7 in morning. May resume per orthopedic spine - Rate controlled on Bisoprolol (5) Chronic diastolic CHF (congestive heart failure): -Continue Bumex 1 mg twice daily, bisoprolol 2.5 mg daily - no signs of volume overload at present. Dry weight is between 230-240. Pt does not weight himself daily. (6) HTN (hypertension): -Follow, medications as above (7) Rheumatoid arthritis: -Stable, chronic DVT PPx: - teds, scds, holding Eliquis with surgical procedure CODE: Full code Dispo: From home, likely to remain in the hospital x 1-2 days Thank you for involving us in the care of Mr. Ozuna. If you have any questions or concerns please do not hesitate to call. At this time medicine will follow along. Supervising Physician Co-Signing Physician Notes I saw this patient with the physician anesthetic assistant, I participated in the history, physical, review of systems, and physical exam on this consult . I reviewed the medications with the patient and the physician anesthetic assistant and helped reconcile the medications. I helped take a detailed family and social history as well. I formulated the assessment and plan personally with the physician anesthetic assistant and went over it with the patient. Physical Exam Gen-AAO x 3, NAD, Afebrile Head-NCAT, EOMI, PERRLA, Anicteric Sclera, No Posterior Pharyngeal Erythema Neck-Supple, No JVD, No Thyromegaly, No Masses, No LAD, No Bruits Lungs-Clear to Auscultation Bilaterally, No Rales, No Rhonchi, No Wheezing, No Crepitus Chest-No S4, +S1, +S2, No S3, No Murmurs, No Rubs, No Gallops, No Ectopy Abdomen-Soft, Bowel Sounds Present, Non Tender, Non Distended, No Hepatomegaly, No Splenomegaly, No Palpable Masses, No Rebound, No Rigidity, No Guarding Musculoskeletal-Sore back Extremities-No Cyanosis, No Clubbing, No Edema Nuero-Cranial Nerves II-XII grossly intact, Motor WNL, DTRs WNL, Strength WNL, Non Focal Psych-Normal Mood History of Present Illness Reason for Consultation: Medical management Requesting Physician: Dr. Saldaña Attending Physician: Per Saldaña, DO History of Present Illness This is an 81 yo M with PMHx of Chronic diastolic CHF, A. fib on Eliquis, hypertension, rheumatoid arthritis who was recently admitted to the hospital under Dr. Saldaña's care from 05/05-05/09, diagnosed with myelopathy concurrent with spinal stenosis of thoracic region. At that time he underwent a thoracic decompression fusion involving T10-T11 on 05/06. Yesterday he presented to the ER due to having significant number of falls while at home. He felt that after surgery, initially he was improving, but that his left leg seemed weaker than prior to surgery. He continues to have issues with dorsiflexion of the left foot, but reports thats been there for a long time. He also reported significant pain in the lower back, radiating down left leg . His concern is due to multiple falls at home where he feels like the left leg gives out and his knees are buckling, despite using a walker at all times to get around his home. Pt can ambulate approximately 70-80 feets with the walker at one time. Spinal imaging was obtained and was suspicious for postoperative infection vs hematoma as he is on Eliquis. Pt only took a few days of this medication at home days after the surgery on 05/06. His last dose was on 05/[address] Saldaña to determine if he plans take the patient for exploratory surgery/washout after MRI results are reviewed. Denies any loss LOC, trauma to head, headache or dizziness. He denies loss of bowel or bladder incontinence, or saddle anesthesia. No other complaints. He denies shortness of breath, chest pain, fever, chills or sweats. Pt lives at home with his . Orthopedic spine surgery has requested medical consultation for medical management assistance. Allergies Allergy/AdvReac Type Severity Reaction Status Date / Time No Known Allergies Allergy Unknown Verified 05/19/21 15:24 Home Medications Medication Instructions Recorded Confirmed Type alfuzosin 10 mg tablet,extended 10 mg PO QPM 05/05/21 05/19/21 History release 24 hr apixaban 5 mg tablet (Eliquis) 5 mg PO BID 05/05/21 05/19/21 History bisoprolol fumarate 5 mg tablet 2.5 mg PO QAM 05/05/21 05/19/21 History bumetanide 1 mg tablet 1 mg PO BID 05/05/21 05/19/21 History calcium carbonate 500 mg-vitamin 1 tab PO QDL 05/05/21 05/19/21 History D3 5 mcg (200 unit) tablet (Calcium 500 + D) cholecalciferol (vitamin D3) 25 50 mcg PO DAILY 05/05/21 05/19/21 History mcg (1,000 unit) capsule (Vitamin D3) coQ10 (ubiquinol) 200 mg capsule 200 mg PO QDL 05/05/21 05/19/21 History cyanocobalamin (vitamin B-12) 1,000 mcg PO QDL 05/05/21 05/19/21 History 1,000 mcg tablet (Vitamin B-12) folic acid 800 mcg tablet 0.8 mg PO QDL 05/05/21 05/19/21 History hydroxychloroquine 200 mg tablet 200 mg PO BID 05/05/21 05/19/21 History magnesium oxide 400 mg PO QDL 05/05/21 05/19/21 History ramipril 10 mg capsule 10 mg PO BID 05/05/21 05/19/21 History testosterone 30 mg/actuation (1.5 3 pump TOPICAL QAM 05/05/21 05/19/21 History mL) transderm solution metered pump vitamin E (dl, acetate) 180 mg 180 mg PO QAM 05/05/21 05/19/21 History (400 unit) capsule zinc 50 mg tablet 50 mg PO QDL 05/05/21 05/19/21 History acetaminophen 650 mg 1,300 mg PO DIRECTED PRN 05/19/21 05/19/21 History tablet,extended release ascorbic acid (vitamin C) 250 mg 250 mg PO DAILY 05/19/21 05/19/21 History tablet (Vitamin C) selenium 200 mcg tablet 200 mcg PO DAILY 05/19/21 05/19/21 History Patient History Medical History Atrial fibrillation Chronic diastolic CHF (congestive heart failure) HTN (hypertension) Rheumatoid arthritis Surgical History History of back surgery History of eye surgery History of total left knee replacement History of total right knee replacement Family History Father Stroke Mother Hypertension Social History (Updated 05/05/21 @ 14:57 by DELIA Bryan) Smoking Status: Never smoker Second Hand Exposure: No; Do You Dip or Chew Tobacco: No; Tobacco Cessation Education Requested by Patient: No Hx Alcohol Use: No Hx Substance Use: Yes Preferred Language: South Sudanese Communication Ability: Effective Marriage And Family Social Worker Required: No Beliefs That Will Affect Care: None marital status: / Current Living Situation: Alone How many Children do You have: 0 Other Information That Helps Us Care for You: No Feels Safe at Home: Yes Safety Concerns: Feels Safe At This Time Assistive Devices: Denture - Upper, Denture - Lower, Glasses and Walker Assistive Devices Comment: brace for right leg for "drop toe" Review of Systems Review of Systems: Constitutional: No fever, sweats or chills Eyes: No diplopia, no worsening or blurred vision ENT: normal hearing, no trouble swallowing Respiratory: No cough, sputum, dyspnea at rest or on exertion Cardiovascular: No chest pain, tightness or palpitations Abdomen: No pain, nausea, vomiting, diarrhea or constipation Back: Pain as per HPI, worsening since surgery Musculoskeletal: As per HPI. No joint pain, calf pain, swelling Neurologic: + worse lower left leg weakness, left leg numbness/tingling, + balance problems Psychiatric: No anxiety or depression Skin: No rash or itch Physical Exam Physical Exam: General: awake, alert, no apparent distress Head: Normocephalic, atraumatic ENT: PERRL, EOMI, no pharyngeal exudate, mucous membranes moist Chest: Clear to auscultation, on room air, no adventitious breath sounds Cardiac: Regular rate and rhythm, no murmur, no JVD, normal peripheral pulses, good capillary refill Abdominal: NABS x 4 quadrants, soft, nondistended, nontender to palpation, no rebound or guarding Back: Incision is healing, no obvious sign of infection, no surrounding erythema or warmth. + Ecchymosis from the midline extending around the left lower back to the left hip. Extremities: Normal inspection, no peripheral edema or erythema, calfs nontender to palpation Psych: Normal mood and affect Neuro: AAO x 3, strength intact bilaterally and rated 5/5 in the RLE, Strength 4/5 in the left hip flexor, left hip raise, + deficit with dorsiflexion of the left foot. Otherwise no gross motor deficits, speech is clear, + numbness in the LLE compared to the RLE. Otherwise no peripheral sensory deficits Results & Data Results & Data ([facility]) Vital Signs (Past 12 Hours) Vital Signs Temp Pulse Resp BP Pulse Ox 05/20/21 07:23 36.6 C 82 16 102/58 L 95 05/19/21 21:33 36.8 C 79 18 162/93 H 96 Laboratory Results 05/19/21 05/19/21 05/19/21 17:06 13:28 13:28 WBC 17.73 H RBC 3.96 L Hgb 14.8 Hct 42.1 MCV 106.3 H MCH 37.4 H MCHC 35.2 RDW Std Deviation 66.7 H RDW Coeff of Nora 17.2 H Plt Count 370 MPV 10.3 Neutrophils % (Manual) 81.6 Lymphocytes % (Manual) 3.5 Monocytes % (Manual) 7.0 Eosinophils % (Manual) 2.6 Basophils % (Manual) 1.8 Metamyelocytes % (Man) 3.5 Neutrophils # (Manual) 14.47 H Total Absolute Neuts 14.47 H Lymphocytes # (Manual) 0.62 L Total Abs Lymphocytes 0.62 L Monocytes # (Manual) 1.24 H Eosinophils # (Manual) 0.46 Basophils # (Manual) 0.32 H Metamyelocytes # (Man) 0.62 H RBC Morphology Unremarkable Sodium 132 L Potassium 3.5 Chloride 95 L Carbon Dioxide 29 Anion Gap 8 BUN 11 Creatinine 0.70 Est Cr Clr Drug Dosing 102.2 Est GFR ( Amer) 101.2 Est GFR (Non-Af Amer) 87.3 BUN/Creatinine Ratio 15.7 Glucose 95 Calcium 8.5 Total Bilirubin 1.3 H AST 34 ALT 34 Alkaline Phosphatase 56 Total Protein 6.1 Albumin 3.6 Globulin 2.5 Albumin/Globulin Ratio 1.4 Lipase 41 SARS-CoV-2, RNA, NAAT NEGATIVE Diagnostic Findings Lumbar Spine X-Ray 05/19/21 14:39 XR lumbar spine 2-3V, XR thoracic spine 3V routine CLINICAL HISTORY: leg weakness TECHNIQUE: 2 views of the thoracic and lumbar spine were obtained. Comparison: None available at the time of this dictation. FINDINGS: T10-T11 posterior fixation hardware is seen. The alignment is anatomic. Degenerative changes are seen in the lumbar spine. No acute fractures are seen. No soft tissue abnormality is seen. IMPRESSION: Severe degenerative changes without evidence of acute fracture. ACT 112: Negative or not required by law. Electronically signed by: Yoshi Castillo M.D. 05/19/2021 3:35 PM Thoracic Spine X-Ray 05/19/21 14:39 XR lumbar spine 2-3V, XR thoracic spine 3V routine CLINICAL HISTORY: leg weakness TECHNIQUE: 2 views of the thoracic and lumbar spine were obtained. Comparison: None available at the time of this dictation. FINDINGS: T10-T11 posterior fixation hardware is seen. The alignment is anatomic. Degenerative changes are seen in the lumbar spine. No acute fractures are seen. No soft tissue abnormality is seen. IMPRESSION: Severe degenerative changes without evidence of acute fracture. ACT 112: Negative or not required by law. Electronically signed by: Yoshi Castillo M.D. 05/19/2021 3:35 PM (1) Back pain Back pain laterality: unspecified Back pain location: thoracic back pain Chronicity: unspecified Qualified Code(s): M54.6 - Pain in thoracic spine
--- NOTE | 2021-05-20 08:42 | Magnetic Resonance Report ---
MR thoracic spine wo con CLINICAL HISTORY: Status post thoracic spine surgery 05/05/2021. Weakness in the legs. Patient also c omplains of severe back pain with burning in the legs. Difficulty ambulating. COMPARISON: Standard radiographs from 322 TECHNIQUE: Multiplanar multisequence images of the Thoracic Spine were performed without contrast. FINDINGS: Bones: The patient is status post interpedicular screw and sheila fixation at T10-11. There is no eviden ce for an acute compression fracture. The heights of the vertebral bodies are maintained. There is minimal anterolisthesis of T9 on T10. The remaining thoracic vertebral bodies are in anatomi c alignment. There is increased signal seen within the T4 vertebral body on T1 and T2 weighted imaging characteris tic of a hemangioma. Homogeneous marrow signal is seen throughout the remainder of the thoracic spine without evidence for marrow edema or marrow replacement. Disc spaces: The patient is status post laminectomy at T10-11 with the interpedicular screw and sheila f ixation. Imaging artifact is present. However, there is a fluid collection seen posterior to the lami nectomy defect. There is evidence for mild compression upon the thecal sac and spinal cord posteriorl y related to the fluid collection. There is at least mild central canal stenosis at this level. There is no compression upon the thecal sac above or below this site. The findings are highly suspicious f or postoperative hematoma versus abscess. Additionally, there is mild paraspinal fluid collection seen at the T10-11 level. There is also fluid extending in what appears to be a fistula track posteriorly to near the skin surface. While this can be related to postsurgical changes, the presence of an infectious process is again suspected due to the patient's symptoms. There is a small central disc protrusion/herniation at T3-4. This abuts the anterior margin of the sp inal cord without compressing or deforming it. The remaining disc space levels are within normal limi ts. Soft tissues: The remaining thoracic spinal cord appears normal. The remaining paraspinal soft tissue s appear normal . IMPRESSION: Abnormal fluid collection posterior to the laminectomy defect at T10-11 compressing upon the thecal sac and spinal cord posteriorly. The findings are highly suspicious for postoperative angeli manish versus abscess. Soft tissue swelling extends into the paraspinal soft tissues as well and within the posterior soft tissues. There is suspicion of a fistula track extending posteriorly. A tiger text was sent to [facility]. ACT 112: Negative or not required by law. Electronically signed by: Jessee Perdomo M.D. 05/20/2021 8:40 AM
[2021-05-20 08:57] LABS: Hematocrit (blood only) 37.6 % (42-52); Hemoglobin 12.7 g/dL (14.0-18.0); Mean Corpuscular Hemoglobin 36.5 pg (25-34); Mean Platelet Volume 10.1 fL (7.4-10.4); Platelet Count 317 K/uL (130-400); RDW Coefficient of Variation 17.3 % (11.5-14.5); RDW Standard Deviation 67.7 fL (36.4-46.3); Red Blood Count 3.48 M/uL (4.7-6.1); White Blood Count 14.23 K/uL (4.8-10.8)
[2021-05-20 08:58] LABS: Mean Corpuscular Hgb Conc 33.8 g/dL (32-36)
[2021-05-20] MEDS ORDERED: NON-FORMULARY MEDICATION (Selenium 200 mcg Tablet) PO SCH (09:00)
[2021-05-20 09:22] LABS: Albumin Globulin Ratio 1.3 (0.9-2); BUN Creatinine Ratio 13.9 (10-20); Bilirubin,Total 1.3 mg/dl (0.2-1.0); Calcium 7.9 mg/dl (8.5-10.1); Creatinine Clr Calc Pharmacy 97.9 ml/min; Est GFR (Non-African American) 86.3 ml/min; Globulin 2.3 gm/dl (2.5-4.0); Potassium 3.6 mmol/L (3.5-5.1); Total Protein 5.3 gm/dl (6.0-8.3)
--- NOTE | 2021-05-20 09:56 | History & Physical Report ---
Date of Service May 20, 2021 Assessment & Plan (1) Lumbar muscle hematoma: Plan: Assessment seroma hematoma to thoracic spine. Plan at this time his Eliquis is held. I am going to make him n.p.o. after midnight and consider an I&D of the thoracic hematoma as it is causing significant mass-effect and may be contributing to his leg weakness. Patient understands and agrees. We made n.p.o. after midnight. 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 He presents with bilateral leg weakness and several falls over the past few days. Subsequent admitted for further work-up. Allergies Allergy/AdvReac Type Severity Reaction Status Date / Time No Known Allergies Allergy Unknown Verified 05/19/21 15:24 Home Medications Medication Instructions Recorded Confirmed Type alfuzosin 10 mg tablet,extended 10 mg PO QPM 05/05/21 05/19/21 History release 24 hr apixaban 5 mg tablet (Eliquis) 5 mg PO BID 05/05/21 05/19/21 History bisoprolol fumarate 5 mg tablet 2.5 mg PO QAM 05/05/21 05/19/21 History bumetanide 1 mg tablet 1 mg PO BID 05/05/21 05/19/21 History calcium carbonate 500 mg-vitamin 1 tab PO QDL 05/05/21 05/19/21 History D3 5 mcg (200 unit) tablet (Calcium 500 + D) cholecalciferol (vitamin D3) 25 50 mcg PO DAILY 05/05/21 05/19/21 History mcg (1,000 unit) capsule (Vitamin D3) coQ10 (ubiquinol) 200 mg capsule 200 mg PO QDL 05/05/21 05/19/21 History cyanocobalamin (vitamin B-12) 1,000 mcg PO QDL 05/05/21 05/19/21 History 1,000 mcg tablet (Vitamin B-12) folic acid 800 mcg tablet 0.8 mg PO QDL 05/05/21 05/19/21 History hydroxychloroquine 200 mg tablet 200 mg PO BID 05/05/21 05/19/21 History magnesium oxide 400 mg PO QDL 05/05/21 05/19/21 History ramipril 10 mg capsule 10 mg PO BID 05/05/21 05/19/21 History testosterone 30 mg/actuation (1.5 3 pump TOPICAL QAM 05/05/21 05/19/21 History mL) transderm solution metered pump vitamin E (dl, acetate) 180 mg 180 mg PO QAM 05/05/21 05/19/21 History (400 unit) capsule zinc 50 mg tablet 50 mg PO QDL 05/05/21 05/19/21 History acetaminophen 650 mg 1,300 mg PO DIRECTED PRN 05/19/21 05/19/21 History tablet,extended release ascorbic acid (vitamin C) 250 mg 250 mg PO DAILY 05/19/21 05/19/21 History tablet (Vitamin C) selenium 200 mcg tablet 200 mcg PO DAILY 05/19/21 05/19/21 History Past Med/Surg History Medical History Atrial fibrillation Chronic diastolic CHF (congestive heart failure) HTN (hypertension) Rheumatoid arthritis Surgical History History of back surgery History of eye surgery History of total left knee replacement History of total right knee replacement Family History Father Stroke Mother Hypertension Social History (Updated 05/05/21 @ 14:57 by DELIA Bryan) Smoking Status: Never smoker Second Hand Exposure: No; Do You Dip or Chew Tobacco: No; Tobacco Cessation Education Requested by Patient: No Hx Alcohol Use: No Hx Substance Use: Yes Preferred Language: Turkish Communication Ability: Effective 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 There is some appreciable swelling. He does have a known foot drop established on the right lower extremity. He has weakness to bilateral quadriceps and hip flexors on the right. Results & Data ([facility]) Vital Signs (Past 12 Hours) Vital Signs Temp Pulse Resp BP Pulse Ox 05/20/21 07:23 36.6 C 82 16 102/58 L 95 Code Status & VTE Plan VTE Prophylaxis Plan VTE Prophylaxis will be ordered: Yes
[2021-05-20] MEDS: ASCORBIC ACID 500 MG TAB PO SCH (09:57)
[2021-05-20] MEDS: BISOPROLOL FUMARATE 5 MG TAB PO SCH (09:57)
[2021-05-20] MEDS: BUMETANIDE 1 MG TAB PO SCH ×2 (09:58→18:33)
[2021-05-20] MEDS: CHOLECALCIFEROL 1,000 UNITS 25 MCG TAB PO SCH (09:59)
[2021-05-20] MEDS: TOCOPHERYL, DL-ALPHA 400 UNITS 180 MG CAP PO SCH (10:00)
[2021-05-20] MEDS: HYDROXYCHLOROQUINE SULFATE 200 MG TAB PO SCH ×2 (10:01→21:04)
[2021-05-20] MEDS ORDERED: NON-FORMULARY MEDICATION (Coq10 (Ubiquinol) 200 mg Capsule) PO SCH (11:30)
[2021-05-20] MEDS ORDERED: FOLIC ACID 400 MCG TAB PO SCH (11:30)
--- NOTE | 2021-05-20 12:09 | Anesthesiology Consultation ---
Date of Service May 20, 2021 Assessment & Plan (1) Encounter for pre-operative examination: Chart Review Chart Review: Acceptable Risk for Surgery and Patient NOT seen in Pre Admission Testing Consults Requested none History Surgery Operation Date: 05/21/21 07:45 Proposed Procedures p Incision and Drainage of Thoracic Spine - Per Saldaña DO Height/Weight Height: 6 ft 1 in Weight: 102.8 kg Allergies Allergy/AdvReac Type Severity Reaction Status Date / Time No Known Allergies Allergy Unknown Verified 05/19/21 15:24 Medications Home Medications Medication Instructions Recorded Confirmed Last Taken alfuzosin 10 mg tablet,extended 10 mg PO QPM 05/05/21 05/19/21 05/18/21 release 24 hr apixaban 5 mg tablet (Eliquis) 5 mg PO BID 05/05/21 05/19/21 05/18/21 bisoprolol fumarate 5 mg tablet 2.5 mg PO QAM 05/05/21 05/19/21 05/18/21 bumetanide 1 mg tablet 1 mg PO BID 05/05/21 05/19/21 05/18/21 calcium carbonate 500 mg-vitamin 1 tab PO QDL 05/05/21 05/19/21 05/18/21 D3 5 mcg (200 unit) tablet (Calcium 500 + D) cholecalciferol (vitamin D3) 25 50 mcg PO DAILY 05/05/21 05/19/21 05/18/21 mcg (1,000 unit) capsule (Vitamin D3) coQ10 (ubiquinol) 200 mg capsule 200 mg PO QDL 05/05/21 05/19/21 05/18/21 cyanocobalamin (vitamin B-12) 1,000 mcg PO QDL 05/05/21 05/19/21 05/18/21 1,000 mcg tablet (Vitamin B-12) folic acid 800 mcg tablet 0.8 mg PO QDL 05/05/21 05/19/21 05/18/21 hydroxychloroquine 200 mg tablet 200 mg PO BID 05/05/21 05/19/21 05/19/21 08:00 magnesium oxide 400 mg PO QDL 05/05/21 05/19/21 05/18/21 ramipril 10 mg capsule 10 mg PO BID 05/05/21 05/19/21 05/18/21 testosterone 30 mg/actuation (1.5 3 pump TOPICAL QAM 05/05/21 05/19/21 05/18/21 mL) transderm solution metered pump vitamin E (dl, acetate) 180 mg 180 mg PO QAM 05/05/21 05/19/21 05/18/21 (400 unit) capsule zinc 50 mg tablet 50 mg PO QDL 05/05/21 05/19/21 05/18/21 acetaminophen 650 mg 1,300 mg PO DIRECTED PRN 05/19/21 05/19/21 Unknown tablet,extended release ascorbic acid (vitamin C) 250 mg 250 mg PO DAILY 05/19/21 05/19/21 05/18/21 tablet (Vitamin C) selenium 200 mcg tablet 200 mcg PO DAILY 05/19/21 05/19/21 05/18/21 Active Medications Generic Name Dose Route Start Last Admin Trade Name Freq PRN Reason Stop Dose Admin Ascorbic Acid 250 mg 05/20/21 09:00 05/20/21 09:57 Ascorbic Acid 500 Mg Tab PO 06/19/21 08:59 250 mg DAILY KARISSA Administration Bisoprolol Fumarate 2.5 mg 05/20/21 09:00 05/20/21 09:57 Bisoprolol Fumarate 5 Mg Tab PO 06/19/21 08:59 Not Given QAM KARISSA Bumetanide 1 mg 05/20/21 09:00 05/20/21 09:58 Bumetanide 1 Mg Tab PO 06/19/21 08:59 1 mg BID17 KARISSA Administration Enalapril Maleate 40 mg 05/19/21 22:30 05/19/21 23:02 Enalapril Maleate 10 Mg Tab PO 06/18/21 22:29 40 mg HS KARISSA Administration Hydromorphone HCl 0.5 mg 05/19/21 21:52 05/20/21 09:51 Hydromorphone Inj 0.5 Mg/0.5 Ml Syr IV 06/02/21 21:51 0.5 mg Q3H PRN Administration MOD pain (scale 4-6) & Pre PT Hydroxychloroquine Sulfate 200 mg 05/19/21 21:52 05/20/21 10:01 Hydroxychloroquine Sulfate 200 Mg Tab PO 06/18/21 21:51 200 mg BID KARISSA Administration Sodium Chloride 1,000 mls @ 75 mls/hr 05/19/21 21:52 05/19/21 22:52 Nss 1000ml IV 06/18/21 21:51 75 mls/hr .[id number] KARISSA Administration Vitamin D 1,000 units 05/20/21 09:00 05/20/21 09:59 Cholecalciferol 1,000 Units 25 Mcg Tab PO 06/19/21 08:59 1,000 units DAILY KARISSA Administration Vitamin E 400 units 05/20/21 09:00 05/20/21 10:00 Tocopheryl, Dl-Alpha 400 Units 180 Mg Cap PO 06/19/21 08:59 400 units QAM KARISSA Administration Past Medical History Medical History Atrial fibrillation Chronic diastolic CHF (congestive heart failure) HTN (hypertension) Rheumatoid arthritis Past Family History Family History Father Stroke Mother Hypertension Past Surgical History Surgical History History of back surgery History of eye surgery History of total left knee replacement History of total right knee replacement Social History Smoking Status: Never smoker Do You Dip or Chew Tobacco: No Hx Alcohol Use: No Alcohol type: beer alcohol intake frequency: a few times a week Hx Substance Use: Yes substance use type: prescription drug Physical Exam Vital Signs Last Vital Signs Temp 97.9 F 05/20/21 07:23 Pulse 82 05/20/21 07:23 Resp 16 05/20/21 07:23 BP 102/58 L 05/20/21 07:23 Pulse Ox 95 05/20/21 07:23 Testing Laboratory Results 05/20/21 08:39 05/20/21 08:39
[2021-05-20] MEDS: SODIUM CHLORIDE 0.9% 1000ML 1,000 ML IV SCH (12:11)
[2021-05-20] MEDS: CALCIUM 600MG + VIT D 400 IU TAB PO SCH (12:12)
[2021-05-20] MEDS: CYANOCOBALAMIN (B-12) 500 MCG TABLET PO SCH (12:13)
[2021-05-20] MEDS: ZINC SULFATE 220 MG CAPSULE PO SCH (12:13)
[2021-05-20] MEDS: MAGNESIUM OXIDE 400 MG TAB PO SCH (12:14)
[2021-05-20] MEDS: ALFUZOSIN HCL 10 MG TAB PO SCH (15:52)
[2021-05-20] MEDS ORDERED: POLYETHYLENE (MIRALAX) 17 GM PACK PO PRN (17:30)
[2021-05-20] MEDS: PSYLLIUM 58.6% POWDER PACKET PO SCH (21:00)
[2021-05-20] MEDS: ENALAPRIL MALEATE 10 MG TAB PO SCH (21:01)
[2021-05-21] MEDS: SODIUM CHLORIDE 0.9% 1000ML 1,000 ML IV SCH ×3 (01:19→19:47)
[2021-05-21] MEDS ORDERED: fentaNYL citrate 100 MCG/2 ML VIAL ONE (07:00)
--- NOTE | 2021-05-21 07:22 | History & Physical Bridge Note ---
Date of Service May 21, 2021 History & Physical Bridge Note I have examined the patient, reviewed the History & Physical and in the interval since the performance of the History & Physical I have noted the following changes of clinical significance: no changes noted Irrigation and debridement thoracic spine
[2021-05-21] MEDS ORDERED: EPINEPHrine INJ 1 MG/ML AMP ONE (07:32)
[2021-05-21] MEDS ORDERED: BUPIVACAINE 0.5 % 5 MG/1 ML MPF 30ML VIAL ONE (07:32)
[2021-05-21] MEDS ORDERED: ceFAZolin 330 MG/ML 1 GM VIAL ONE (07:33)
[2021-05-21] MEDS ORDERED: ONDANSETRON INJ 2 MG/ML 2 ML VIAL IV PRN ×2 (07:40→09:59)
[2021-05-21] MEDS ORDERED: ePHEDrine sulfate 50 MG/ML AMP IV PRN (07:40)
[2021-05-21] MEDS ORDERED: ATROPINE SULFATE 0.1 MG/ML 10ML SYR IV PRN (07:40)
[2021-05-21] MEDS ORDERED: VANCOMYCIN HCL 1000MG/20ML VIAL ONE (08:13)
[2021-05-21] MEDS ORDERED: GENTAMICIN SULFATE 40 MG/ML 2 ML VIAL ONE (08:13)
[2021-05-21] MEDS ORDERED: ONDANSETRON INJ 2 MG/ML 2 ML VIAL ONE (08:21)
[2021-05-21] MEDS ORDERED: LIDOCAINE 2% 2 ML VIAL/AMP(20MG/ML) INFIL ONE (08:21)
[2021-05-21] MEDS ORDERED: PROPOFOL IV EMULSION 10 MG/ML 20 ML VIAL IV ONE (08:21)
[2021-05-21] MEDS ORDERED: ROCURONIUM BROMIDE 10 MG/ML 5 ML VIAL IV ONE (08:21)
[2021-05-21] MEDS ORDERED: PHENYLEPHRINE HCL 10 MG/ML VIAL ONE (08:21)
[2021-05-21] MEDS ORDERED: DEXAMETHASONE SOD INJ 4 MG/ML VIAL ONE (08:21)
[2021-05-21] MEDS ORDERED: NEOSTIGMINE METHYLSULFATE 1 MG/ML 10ML VIAL ONE (08:27)
[2021-05-21] MEDS ORDERED: GLYCOPYRROLATE 0.2 MG/ML VIAL ONE (08:27)
--- NOTE | 2021-05-21 08:46 | Operative Report ---
Post Operative Report Pre & Post Diagnosis Operation Date: 05/21/21 07:45 Pre-Op Diagnosis: Thoracic epidural hematoma Post-Op Diagnosis: Same I identified the patient and participated in the time-out.: Yes Procedure Operation Date: 05/21/21 07:45 Actual Procedures Irrigation debridement of thoracic hematoma Surgeon Per Saldaña DO Medicaid Collection Specialist None Estimated Blood Loss 10 Findings Consistent with Post-Op Diagnosis Specimens Cultures epidural space Indications This is an 81-year-old male who presents with decline in status worsening ability to ambulate and evidence of a significant epidural hematoma with suspicions of cord compression. Subsequently he is here for evacuation. Description of Procedure Patient was met with identified informed consent obtained. Patient was then taken to the operative suite underwent patient placed in a prone position the [place] table top of the Jaguar frame. All bony prominences well-padded eyes inspected to ensure no external pressure placed upon the. This point the thoracic spine was prepped and draped in a sterile fashion. Sharp dissection formed through the skin down through the fascial layers. Obvious massive collection of blood consistent with hematoma was noted. Cultures were obtained however I did not appreciate any evidence of infection. The area was copiously irrigated with several liters of saline to remove all coagulated blood. 15 round CAITLIN drain was then inserted as well as approximately 5 cc of stimulant beads impregnated with vancomycin gentamicin throughout the wound. Incision was then closed with subcutaneous Vicryl and felisha for final skin closure. Steri- Strip sterile dressings placed. Patient was then taken back in stable condition. I attest to the content of the Intraoperative Record and any orders documented therein. Any exceptions are noted below.
[2021-05-21] MEDS: fentaNYL citrate 100 MCG/2 ML VIAL IV PRN ×4 (09:10→09:25)
[2021-05-21] MEDS ORDERED: FAMOTIDINE 20 MG TAB PO PRN (09:59)
[2021-05-21] MEDS ORDERED: ONDANSETRON 4 MG OD TAB PO PRN (09:59)
[2021-05-21] MEDS ORDERED: hydrOXYzine HCl 25 MG TAB PO PRN (09:59)
[2021-05-21] MEDS ORDERED: oxyCODONE HCL IR 5 MG TAB (IMMEDIATE RELEASE) PO PRN (09:59)
[2021-05-21] MEDS ORDERED: NALOXONE HCL 0.4 MG/1 ML VIAL/CARP IV PRN (09:59)
[2021-05-21] MEDS ORDERED: diphenhydrAMINE Capsule 25 MG CAP PO PRN (09:59)
[2021-05-21] MEDS ORDERED: bisacodyL 10 MG SUPP PR PRN ×2 (09:59→17:36)
[2021-05-21] MEDS ORDERED: HYDROmorphone INJ 1 MG/ML SYRINGE IV PRN (09:59)
[2021-05-21] MEDS ORDERED: ACETAMINOPHEN 1,000 MG/100 ML VIAL IV PRN (09:59)
[2021-05-21] MEDS ORDERED: LORazepam 0.5 MG TAB PO PRN (09:59)
[2021-05-21] MEDS ORDERED: LORazepam 0.5 MG/1 ML VIAL IV PRN (09:59)
[2021-05-21] MEDS ORDERED: DO NOT ADMINISTER PNEUMOCOCCAL VACCINE PRN (09:59)
[2021-05-21] MEDS ORDERED: MAGNESIUM HYDROXIDE SUSP 30 ML UDC PO PRN (09:59)
[2021-05-21] MEDS ORDERED: SOD PHOSPHATE/SOD BIPHOSPHATE ENEMA 132 ML BTL PR PRN (09:59)
[2021-05-21] MEDS ORDERED: PROMETHAZINE HCL 12.5 MG in SODIUM CHLORIDE 0.9% 50 ML IV PRN (09:59)
[2021-05-21] MEDS ORDERED: ACETAMINOPHEN 500 MG TAB PO PRN (09:59)
[2021-05-21] MEDS ORDERED: ALUMINUM/MAGNESIUM SUSP 30 ML UDC PO PRN (09:59)
[2021-05-21] MEDS ORDERED: DO NOT ADMINISTER FLU VACCINE PRN (09:59)
[2021-05-21] MEDS ORDERED: METOCLOPRAMIDE HCL INJ 5 MG/ML 2 ML VIAL IV PRN (09:59)
[2021-05-21] MEDS ORDERED: HYDROmorphone INJ 0.5 MG/0.5 ML SYR IV PRN (09:59)
--- NOTE | 2021-05-21 10:14 | Anesthesiology Progress Note ---
Date of Service May 21, 2021 Anesthesia Post Procedure Vital Signs Vital Signs: Temp Pulse Pulse Resp BP BP Pulse Ox 05/21/21 10:03 99.0 F 61 14 120/68 96 05/21/21 09:40 99.0 F 80 10 L 101/63 97 05/21/21 09:30 99.0 F 79 19 107/70 97 05/21/21 09:20 78 18 106/69 95 05/21/21 09:10 64 17 111/71 97 05/21/21 09:00 73 19 140/79 97 05/21/21 08:52 97.3 F L 82 18 129/78 97 05/21/21 07:30 98.2 F 86 18 140/84 96 05/21/21 06:33 98.1 F 86 16 118/60 92 05/20/21 21:23 97.9 F 84 16 117/64 95 05/20/21 14:46 97.9 F 62 16 135/86 92 Pain Intensity Back: Pain Intensity: 3 Transfer of Care Handoff Completed per policy Notes Mental Status: alert / awake / arousable and participated in evaluation Patient Amnestic to Procedure: Yes Nausea / Vomiting: adequately controlled Pain: adequately controlled Airway Patency, RR, SpO2: stable & adequate BP & HR: stable & adequate Hydration State: stable & adequate Anesthetic Complications: no major complications apparent and Pt Satisfied with anesthetic care
[2021-05-21] MEDS: ASCORBIC ACID 500 MG TAB PO SCH (10:37)
[2021-05-21] MEDS: BUMETANIDE 1 MG TAB PO SCH (10:38)
[2021-05-21] MEDS: BISOPROLOL FUMARATE 5 MG TAB PO SCH (10:38)
[2021-05-21] MEDS: CHOLECALCIFEROL 1,000 UNITS 25 MCG TAB PO SCH (10:39)
[2021-05-21] MEDS: HYDROXYCHLOROQUINE SULFATE 200 MG TAB PO SCH ×2 (10:40→20:04)
[2021-05-21] MEDS: TOCOPHERYL, DL-ALPHA 400 UNITS 180 MG CAP PO SCH (10:40)
[2021-05-21] MEDS: CALCIUM 600MG + VIT D 400 IU TAB PO SCH (12:09)
[2021-05-21] MEDS: CYANOCOBALAMIN (B-12) 500 MCG TABLET PO SCH (12:10)
[2021-05-21] MEDS: ZINC SULFATE 220 MG CAPSULE PO SCH (12:11)
[2021-05-21] MEDS: MAGNESIUM OXIDE 400 MG TAB PO SCH (12:11)
[2021-05-21] MEDS: FOLIC ACID 400 MCG TAB PO SCH (12:11)
[2021-05-21] MEDS: PSYLLIUM 58.6% POWDER PACKET PO SCH (12:39)
--- NOTE | 2021-05-21 13:06 | Hospitalist Progress Note ---
Date of Service May 21, 2021 Assessment & Plan (1) Myelopathy concurrent with and due to spinal stenosis of thoracic region: (2) Back pain: (3) Ambulatory dysfunction: Plan: Recent Thoracic decompression fusion of T10-T11 on 05/06, MRI with suspicion of hematoma as the patient is on Eliquis POD #0 s/p irrigation and debridement of thoracic hematoma by Dr. Saldaña Per ortho for pain control, wound care, anticoagulation and activities Monitor H&H (pre-op hgb 12.7), continue incentive spirometry, PT/OT when appropriate (4) Atrial fibrillation: Plan: Holding Eliquis, last dose was 2/7 in morning. May resume per orthopedic spine Rate controlled on Bisoprolol (5) Chronic diastolic CHF (congestive heart failure): Plan: Continue Bumex 1 mg twice daily, bisoprolol 2.5 mg daily - no signs of volume overload at present. Monitor volume status closely (6) HTN (hypertension): Plan: Follow, medications as above (7) Rheumatoid arthritis: Plan: Stable, chronic DVT PPx: Teds, scds, holding Eliquis until ok to resume per surgeon CODE STATUS: Full Dispo: Admitted to med/surg Patient seen and examined with Dr. Cardoso. Please see addendum. Thank you for this consultation. We will follow the patient with you during their hospital stay. You can reach a [facility] 01/11 via pager @ [phone]. Admission and Anticipated Discharge Date Admission Date: May 19, 2021 Supervising Physician Co-Signing Physician Notes I saw this patient with the physician assistant chief engineer, I participated in the history, physical, review of systems, and physical exam on this consult . I reviewed the medications with the patient and the physician assistant chief engineer and helped reconcile the medications. I helped take a detailed family and social history as well. I formulated the assessment and plan personally with the physician assistant chief engineer and went over it with the patient. Physical Exam Gen-AAO x 3, NAD, Afebrile Head-NCAT, EOMI, PERRLA, Anicteric Sclera, No Posterior Pharyngeal Erythema Neck-Supple, No JVD, No Thyromegaly, No Masses, No LAD, No Bruits Lungs-Clear to Auscultation Bilaterally, No Rales, No Rhonchi, No Wheezing, No Crepitus Chest-No S4, +S1, +S2, No S3, No Murmurs, No Rubs, No Gallops, No Ectopy Abdomen-Soft, Bowel Sounds Present, Non Tender, Non Distended, No Hepatomegaly, No Splenomegaly, No Palpable Masses, No Rebound, No Rigidity, No Guarding Musculoskeletal-Sore back Extremities-No Cyanosis, No Clubbing, No Edema Nuero-Cranial Nerves II-XII grossly intact, Motor WNL, DTRs WNL, Strength WNL, Non Focal Psych-Normal Mood Subjective Seen and examined in 355-2 following return from OR this morning. Feeling well post-operatively, without surgical site pain. Tolerating clear liquids without issue. No F/C, CP, SOB, N/V/D, abdominal pain, dysuria or diarrhea. Review of Systems Review of Systems: At least ten systems reviewed and negative except as noted in the HPI. Physical Exam Physical Exam: Gen: WD/WN, NAD, sitting in bed, A&Ox3 HEENT: Normocephalic, atraumatic, conjunctivae moist, sclerae anicteric, mucous membranes moist Lung: Clear to Auscultation bilaterally, no wheezes/rales/rhonchi Heart: Regular rate, regular rhythm, no murmurs, rubs, or gallops Abdomen: Soft, NT, ND +BS x 4 Extremities: Spinal dressing c/d/i. CAITLIN drain visualized. No edema Skin: Warm, no rash Results & Data Results & Data ([facility]) Vital Signs (Past 12 Hours) Vital Signs Temp Pulse Pulse Resp BP Pulse Ox 05/21/21 12:00 36.6 C 90 16 117/73 93 05/21/21 10:59 36.4 C L 79 16 120/74 94 05/21/21 10:26 36.4 C L 76 17 114/74 94 05/21/21 10:03 37.2 C 61 14 120/68 96 05/21/21 09:40 37.2 C 80 10 L 101/63 97 05/21/21 09:30 37.2 C 79 19 107/70 97 05/21/21 09:20 78 18 106/69 95 05/21/21 09:10 64 17 111/71 97 05/21/21 09:00 73 19 140/79 97 05/21/21 08:52 36.3 C L 82 18 129/78 97 05/21/21 07:30 36.8 C 86 18 140/84 96 05/21/21 06:33 36.7 C 86 16 118/60 92 (1) Back pain Back pain laterality: unspecified Back pain location: thoracic back pain Chronicity: unspecified Qualified Code(s): M54.6 - Pain in thoracic spine
[2021-05-21] MEDS: traMADol HCL 50 MG TABLET PO PRN (16:10)
[2021-05-21] MEDS: ceFAZolin 2000MG 2,000 MG/15 ML SYR IV SCH ×2 (16:11→23:03)
[2021-05-21] MEDS: ALFUZOSIN HCL 10 MG TAB PO SCH (16:18)
[2021-05-21] MEDS: ENALAPRIL MALEATE 10 MG TAB PO SCH (20:04)
[2021-05-21] MEDS: DOCUSATE SODIUM/SENNA 50/8.6MG TAB PO SCH (20:06)
[2021-05-21] MEDS ORDERED: PSYLLIUM 58.6% POWDER PACKET PO STA (21:09)
[2021-05-22] MEDS ORDERED: POLYETHYLENE (MIRALAX) 17 GM PACK PO SCH (06:00)
[2021-05-22] MEDS: SODIUM CHLORIDE 0.9% 1000ML 1,000 ML IV SCH (06:01)
[2021-05-22 06:09] LABS: Hematocrit (blood only) 35.2 % (42-52); Hemoglobin 11.9 g/dL (14.0-18.0); Mean Corpuscular Hemoglobin 36.5 pg (25-34); Mean Corpuscular Hgb Conc 33.8 g/dL (32-36); Mean Platelet Volume 10.5 fL (7.4-10.4); Platelet Count 306 K/uL (130-400); RDW Coefficient of Variation 17.5 % (11.5-14.5); RDW Standard Deviation 68.3 fL (36.4-46.3); Red Blood Count 3.26 M/uL (4.7-6.1); White Blood Count 14.18 K/uL (4.8-10.8)
[2021-05-22 06:20] LABS: BUN Creatinine Ratio 18.1 (10-20); Calcium 7.9 mg/dl (8.5-10.1); Creatinine Clr Calc Pharmacy 97.9 ml/min; Est GFR (Non-African American) 86.3 ml/min; Potassium 3.7 mmol/L (3.5-5.1)
[2021-05-22 06:33] LABS: ANC (manual) 12.44 K/uL (1.4-6.5); Lymphocytes % (manual) 3.5 %; Metamyelocytes # (manual) 0.13 K/uL (0-0); Metamyelocytes % (manual) 0.9 %; Monocytes # (manual) 0.62 K/uL (0.11-0.59); Monocytes % (manual) 4.4 %; Myelocytes % (manual) 3.5 %; Neutrophils # (manual) 12.44 K/uL (1.4-6.5); Neutrophils % (manual) 87.7 %; RBC Morphology Unremarkable
[2021-05-22] MEDS: ASCORBIC ACID 500 MG TAB PO SCH (08:36)
[2021-05-22] MEDS: BISOPROLOL FUMARATE 5 MG TAB PO SCH (08:37)
[2021-05-22] MEDS: BUMETANIDE 1 MG TAB PO SCH ×2 (08:38→18:38)
[2021-05-22] MEDS: CHOLECALCIFEROL 1,000 UNITS 25 MCG TAB PO SCH (08:39)
[2021-05-22] MEDS: TOCOPHERYL, DL-ALPHA 400 UNITS 180 MG CAP PO SCH (08:39)
[2021-05-22] MEDS: HYDROXYCHLOROQUINE SULFATE 200 MG TAB PO SCH ×2 (08:40→20:39)
[2021-05-22] MEDS: traMADol HCL 50 MG TABLET PO PRN ×2 (08:47→15:25)
--- NOTE | 2021-05-22 12:50 | Orthopedic Progress Note ---
Date of Service May 22, 2021 Assessment & Plan (1) Myelopathy concurrent with and due to spinal stenosis of thoracic region: Plan: Assessment status post evacuation of hematoma thoracic spine secondary to decompression for thoracic myelopathy. At this point I am going to continue with occupational physical therapy and hope to have him accepted to rehab in the next few days. Admission and Anticipated Discharge Date Admission Date: May 19, 2021 Subjective Patient's back pain is controlled abdominal pain and leg symptoms improved Physical Exam Physical Exam: Patient is sitting in the chair at the bedside. He appears comfortable. Is reasonable strength testing. Results & Data ([facility]) Vital Signs (Past 12 Hours) Vital Signs Temp Pulse Resp BP BP Pulse Ox 05/22/21 11:21 36.8 C 80 17 134/78 95 05/22/21 08:20 36.7 C 91 H 16 136/83 93 05/22/21 03:41 36.6 C 61 18 103/66 95
[2021-05-22] MEDS: CALCIUM 600MG + VIT D 400 IU TAB PO SCH (13:35)
[2021-05-22] MEDS: CYANOCOBALAMIN (B-12) 500 MCG TABLET PO SCH (13:36)
[2021-05-22] MEDS: MAGNESIUM OXIDE 400 MG TAB PO SCH (13:36)
[2021-05-22] MEDS: FOLIC ACID 400 MCG TAB PO SCH (13:36)
[2021-05-22] MEDS: ALFUZOSIN HCL 10 MG TAB PO SCH (13:37)
[2021-05-22] MEDS: ZINC SULFATE 220 MG CAPSULE PO SCH (13:37)
--- NOTE | 2021-05-22 16:14 | Hospitalist Progress Note ---
Date of Service May 22, 2021 Assessment & Plan (1) Myelopathy concurrent with and due to spinal stenosis of thoracic region: (2) Back pain: (3) Ambulatory dysfunction: Plan: Recent Thoracic decompression fusion of T10-T11 on 05/06, MRI with suspicion of hematoma as the patient is on Eliquis POD #1 s/p irrigation and debridement of thoracic hematoma by Dr. Saldaña Per ortho for pain control, wound care, anticoagulation and activities Monitor H&H (hgb 11.9 today, from pre-op hgb 12.7), continue incentive spirometry, PT/OT when appropriate (4) Atrial fibrillation: Plan: Holding Eliquis, last dose was 2/7 in morning. May resume per orthopedic spine Rate controlled on Bisoprolol (5) Chronic diastolic CHF (congestive heart failure): Plan: Continue Bumex 1 mg twice daily, bisoprolol 2.5 mg daily - no signs of volume overload at present. Monitor volume status closely (6) HTN (hypertension): Plan: Follow, medications as above (7) Rheumatoid arthritis: Plan: Stable, chronic DVT PPx: Teds, scds, holding Eliquis until ok to resume per surgeon CODE STATUS: Full Dispo: Admitted to med/surg Patient seen and examined with Dr. Cardoso. Please see addendum. Thank you for this consultation. We will follow the patient with you during their hospital stay. You can reach a member of the [facility] Hospitalist Team 01/11 via pager @ [phone]. Admission and Anticipated Discharge Date Admission Date: May 19, 2021 Supervising Physician Co-Signing Physician Notes I saw this patient with the physician entry level assistant manager, I participated in the history, physical, review of systems, and physical exam on this consult . I reviewed the medications with the patient and the physician entry level assistant manager and helped reconcile the medications. I helped take a detailed family and social history as well. I formulated the assessment and plan personally with the physician entry level assistant manager and went over it with the patient. Physical Exam Gen-AAO x 3, NAD, Afebrile Head-NCAT, EOMI, PERRLA, Anicteric Sclera, No Posterior Pharyngeal Erythema Neck-Supple, No JVD, No Thyromegaly, No Masses, No LAD, No Bruits Lungs-Clear to Auscultation Bilaterally, No Rales, No Rhonchi, No Wheezing, No Crepitus Chest-No S4, +S1, +S2, No S3, No Murmurs, No Rubs, No Gallops, No Ectopy Abdomen-Soft, Bowel Sounds Present, Non Tender, Non Distended, No Hepatomegaly, No Splenomegaly, No Palpable Masses, No Rebound, No Rigidity, No Guarding Musculoskeletal-Sore back Extremities-No Cyanosis, No Clubbing, No Edema Nuero-Cranial Nerves II-XII grossly intact, Motor WNL, DTRs WNL, Strength WNL, Non Focal Psych-Normal Mood Subjective Seen and examined in 355-2 sitting in bedside chair. Feeling much better post- operatively, without surgical site pain or pain in BLE. Tolerating diet without issue. No F/C, CP, SOB, N/V/D, abdominal pain, dysuria or diarrhea. Passing flatus but no post-op bowel movement yet. Review of Systems Review of Systems: At least ten systems reviewed and negative except as noted in the HPI. Physical Exam Physical Exam: Gen: WD/WN, NAD, sitting in bedside chair, A&Ox3 HEENT: Normocephalic, atraumatic, conjunctivae moist, sclerae anicteric, mucous membranes moist Lung: Clear to Auscultation bilaterally, no wheezes/rales/rhonchi Heart: Regular rate, regular rhythm, no murmurs, rubs, or gallops Abdomen: Soft, NT, ND +BS x 4 Extremities: Spinal dressing c/d/i. CAITLIN drain visualized. No edema Skin: Warm, no rash Results & Data Results & Data ([facility]) Vital Signs (Past 12 Hours) Vital Signs Temp Pulse Resp BP BP Pulse Ox 05/22/21 15:35 36.6 C 92 H 17 110/64 95 05/22/21 11:21 36.8 C 80 17 134/78 95 05/22/21 08:20 36.7 C 91 H 16 136/83 93 Laboratory Results Short CBC 05/22/21 Range/Units 05:27 WBC 14.18 H (4.8-10.8) K/uL Hgb 11.9 L (14.0-18.0) g/dL Hct 35.2 L (42-52) % Plt Count 306 (130-400) K/uL [facility] 05/22/21 05:27 Sodium 133 L Potassium 3.7 Chloride 100 Carbon Dioxide 30 BUN 13 Creatinine 0.72 Glucose 105 H Calcium 7.9 L Diagnostic Findings Lumbar Spine X-Ray 05/19/21 14:39 XR lumbar spine 2-3V, XR thoracic spine 3V routine CLINICAL HISTORY: leg weakness TECHNIQUE: 2 views of the thoracic and lumbar spine were obtained. Comparison: None available at the time of this dictation. FINDINGS: T10-T11 posterior fixation hardware is seen. The alignment is anatomic. Degenerative changes are seen in the lumbar spine. No acute fractures are seen. No soft tissue abnormality is seen. IMPRESSION: Severe degenerative changes without evidence of acute fracture. ACT 112: Negative or not required by law. Electronically signed by: Yoshi Castillo M.D. 05/19/2021 3:35 PM Thoracic Spine X-Ray 05/19/21 14:39 XR lumbar spine 2-3V, XR thoracic spine 3V routine CLINICAL HISTORY: leg weakness TECHNIQUE: 2 views of the thoracic and lumbar spine were obtained. Comparison: None available at the time of this dictation. FINDINGS: T10-T11 posterior fixation hardware is seen. The alignment is anatomic. Degenerative changes are seen in the lumbar spine. No acute fractures are seen. No soft tissue abnormality is seen. IMPRESSION: Severe degenerative changes without evidence of acute fracture. ACT 112: Negative or not required by law. Electronically signed by: Yoshi Castillo M.D. 05/19/2021 3:35 PM Thoracic Spine MRI 05/19/21 16:37 MR thoracic spine wo con CLINICAL HISTORY: Status post thoracic spine surgery 05/05/2021. Weakness in the legs. Patient also complains of severe back pain with burning in the legs. Difficulty ambulating. COMPARISON: Standard radiographs from [facility] TECHNIQUE: Multiplanar multisequence images of the Thoracic Spine were performed without contrast. FINDINGS: Bones: The patient is status post interpedicular screw and sheila fixation at T10- 11. There is no evidence for an acute compression fracture. The heights of the vertebral bodies are maintained. There is minimal anterolisthesis of T9 on T10. The remaining thoracic vertebral bodies are in anatomic alignment. There is increased signal seen within the T4 vertebral body on T1 and T2 weighted imaging characteristic of a hemangioma. Homogeneous marrow signal is seen throughout the remainder of the thoracic spine without evidence for marrow edema or marrow replacement. Disc spaces: The patient is status post laminectomy at T10-11 with the int erpedicular screw and sheila fixation. Imaging artifact is present. However, there is a fluid collection seen posterior to the laminectomy defect. There is evidence for mild compression upon the thecal sac and spinal cord posteriorly related to the fluid collection. There is at least mild central canal stenosis at this level. There is no compression upon the thecal sac above or below this site. The findings are highly suspicious for postoperative hematoma versus abscess. Additionally, there is mild paraspinal fluid collection seen at the T10-11 level. There is also fluid extending in what appears to be a fistula track posteriorly to near the skin surface. While this can be related to postsurgical changes, the presence of an infectious process is again suspected due to the patient's symptoms. There is a small central disc protrusion/herniation at T3-4. This abuts the anterior margin of the spinal cord without compressing or deforming it. The remaining disc space levels are within normal limits. Soft tissues: The remaining thoracic spinal cord appears normal. The remaining paraspinal soft tissues appear normal . IMPRESSION: Abnormal fluid collection posterior to the laminectomy defect at T10-11 compressing upon the thecal sac and spinal cord posteriorly. The findings are highly suspicious for postoperative hematoma versus abscess. Soft tissue swelling extends into the paraspinal soft tissues as well and within the posterior soft tissues. There is suspicion of a fistula track extending posteriorly. A tiger text was sent to [facility]. ACT 112: Negative or not required by law. Electronically signed by: Jessee Perdomo M.D. 05/20/2021 8:40 AM (1) Back pain Back pain laterality: unspecified Back pain location: thoracic back pain Chronicity: unspecified Qualified Code(s): M54.6 - Pain in thoracic spine
[2021-05-22] MEDS: DOCUSATE SODIUM/SENNA 50/8.6MG TAB PO SCH (20:39)
[2021-05-22] MEDS: ENALAPRIL MALEATE 10 MG TAB PO SCH (20:39)
[2021-05-23] MEDS: HYDROXYCHLOROQUINE SULFATE 200 MG TAB PO SCH ×2 (09:47→21:04)
[2021-05-23] MEDS: NON-FORMULARY PATIENT'S OWN MED TD SCH (09:47)
[2021-05-23] MEDS: BUMETANIDE 1 MG TAB PO SCH ×2 (09:48→18:07)
[2021-05-23] MEDS: CHOLECALCIFEROL 1,000 UNITS 25 MCG TAB PO SCH (09:48)
[2021-05-23] MEDS: TOCOPHERYL, DL-ALPHA 400 UNITS 180 MG CAP PO SCH (09:49)
[2021-05-23] MEDS: BISOPROLOL FUMARATE 5 MG TAB PO SCH (09:51)
--- NOTE | 2021-05-23 10:30 | Orthopedic Progress Note ---
Date of Service May 23, 2021 Assessment & Plan (1) Lumbar muscle hematoma: Plan: This time we will maintain the CAITLIN drain continue with therapy as tolerated anticipate discharge to rehab or intermediate Tuesday. Admission and Anticipated Discharge Date Admission Date: May 19, 2021 Subjective Back pain controlled has been able to ambulate with a walker. Physical Exam Physical Exam: Patient appears comfortable. He has good strength testing left lower extremity. Established foot drop to the right foot. CAITLIN drain is functioning. Results & Data ([facility] [place]) Vital Signs (Past 12 Hours) Vital Signs Temp Pulse Pulse Resp BP Pulse Ox 05/23/21 07:44 36.8 C 66 18 106/62 100 05/22/21 23:30 36.6 C 84 17 117/72 94
[2021-05-23] MEDS: ASCORBIC ACID 500 MG TAB PO SCH (11:14)
[2021-05-23] MEDS: ZINC SULFATE 220 MG CAPSULE PO SCH (11:15)
[2021-05-23] MEDS: MAGNESIUM OXIDE 400 MG TAB PO SCH (11:15)
[2021-05-23] MEDS: CALCIUM 600MG + VIT D 400 IU TAB PO SCH (11:15)
[2021-05-23] MEDS: FOLIC ACID 400 MCG TAB PO SCH (11:15)
[2021-05-23] MEDS: CYANOCOBALAMIN (B-12) 500 MCG TABLET PO SCH (11:15)
--- NOTE | 2021-05-23 11:19 | Hospitalist Progress Note ---
Date of Service May 23, 2021 Assessment & Plan (1) Myelopathy concurrent with and due to spinal stenosis of thoracic region: (2) Back pain: (3) Ambulatory dysfunction: Plan: Recent Thoracic decompression fusion of T10-T11 on 05/06, MRI with suspicion of hematoma as the patient is on Eliquis s/p irrigation and debridement of thoracic hematoma by Dr. Saldaña on 05/21 Per ortho for pain control, wound care, anticoagulation and activities +Acute Post Op Blood Loss Anemia Monitor H&H (pre-op hgb 12.7), continue incentive spirometry, PT/OT when appropriate (4) Atrial fibrillation: Plan: Holding Eliquis, last dose was 2/7 in morning. May resume per orthopedic spine Rate controlled on Bisoprolol (5) Chronic diastolic CHF (congestive heart failure): Plan: Continue Bumex 1 mg twice daily, bisoprolol 2.5 mg daily - no signs of volume overload at present. Monitor volume status closely (6) HTN (hypertension): Plan: Follow, medications as above (7) Rheumatoid arthritis: Plan: Stable, chronic DVT PPx: Teds, scds, holding Eliquis until ok to resume per surgeon CODE STATUS: Full Dispo: Admitted to med/surg ROS-No Headache, No Visual Changes, No Nausea, No Vomiting, No Fever, No Chills, No Neck Pain or Stiffness, No Chest Pain, No Palpitations, No SOB, No PATEL, No Cough, No Sputum, No Wheezing, No Abdominal Pain, No Diarrhea, No Hematemesis, No Hemoptysis, No Unexpected Weight Loss, No Flank pain, No Melena, No Hematochezia, No Frequency, No Urgency, No Burning, No Hematuria, No Rashes, No Diaphoresis. Appetite is Mounika, sore backl Physical Exam Gen-AAO x 3, NAD, Afebrile, +Drain in mid back, obese Head-NCAT, EOMI, PERRLA, Anicteric Sclera, No Posterior Pharyngeal Erythema Neck-Supple, No JVD, No Thyromegaly, No Masses, No LAD, No Bruits Lungs-Clear to Auscultation Bilaterally, No Rales, No Rhonchi, No Wheezing, No Crepitus Chest-No S4, +S1, +S2, No S3, No Murmurs, No Rubs, No Gallops, No Ectopy Abdomen-Soft, Bowel Sounds Present, Non Tender, Non Distended, No Hepatomegaly, No Splenomegaly, No Palpable Masses, No Rebound, No Rigidity, No Guarding Musculoskeletal-Full Range of Motion Bilaterally, No CVAT Extremities-No Cyanosis, No Clubbing, No Edema Nuero-Cranial Nerves II-XII grossly intact, Motor WNL, DTRs WNL, Strength WNL, Non Focal Psych-Normal Mood Admission and Anticipated Discharge Date Admission Date: May 19, 2021 Subjective Back pain controlled drain still in place, feels good Results & Data Results & Data ([facility]) Vital Signs (Past 12 Hours) Vital Signs Temp Pulse Pulse Resp BP Pulse Ox 05/23/21 07:44 36.8 C 66 18 106/62 100 05/22/21 23:30 36.6 C 84 17 117/72 94 (1) Back pain Back pain laterality: unspecified Back pain location: thoracic back pain Chronicity: unspecified Qualified Code(s): M54.6 - Pain in thoracic spine
[2021-05-23] MEDS: ALFUZOSIN HCL 10 MG TAB PO SCH (14:06)
[2021-05-23] MEDS: traMADol HCL 50 MG TABLET PO PRN (18:07)
[2021-05-23] MEDS: DOCUSATE SODIUM/SENNA 50/8.6MG TAB PO SCH (21:04)
[2021-05-23] MEDS: ENALAPRIL MALEATE 10 MG TAB PO SCH (21:04)
--- NOTE | 2021-05-24 09:21 | Orthopedic Progress Note ---
Date of Service May 24, 2021 Assessment & Plan (1) Bilateral leg weakness: Plan: Patient will continue with physical therapy today. Maintain CAITLIN drain. This will likely need to be maintained for several more days. Have discussed with Dr. Saldaña resuming Eliquis. He is comfortable restarting this tomorrow. Currently awaiting SNF approval in [place]. Admission and Anticipated Discharge Date Admission Date: May 19, 2021 Subjective Patient is postoperative day 3 I&D of hematoma thoracic spine. Still notes weakness bilateral lower extremities. Pain is improved. He had a bowel movement this morning. Yesterday in physical therapy ambling 160 feet. Eliquis secondary to A. fib is still on hold Review of Systems Review of Systems: All systems reviewed & are unremarkable except as noted in HPI & below Physical Exam Physical Exam: Alert and oriented x3 up and amatory around the room with the assistance of a walker Thoracic dressing is clean dry intact with functioning CAITLIN drain Calves are soft and nontender bilaterally strength unchanged bilateral lower extremity Results & Data ([facility]) Vital Signs (Past 12 Hours) Vital Signs Temp Pulse Pulse Resp BP Pulse Ox 05/24/21 07:34 36.8 C 77 16 137/88 98 05/23/21 22:27 36.5 C 95 H 20 131/81 95
[2021-05-24] MEDS: NON-FORMULARY PATIENT'S OWN MED TD SCH (09:49)
[2021-05-24] MEDS: CHOLECALCIFEROL 1,000 UNITS 25 MCG TAB PO SCH (09:50)
[2021-05-24] MEDS: HYDROXYCHLOROQUINE SULFATE 200 MG TAB PO SCH ×2 (09:50→20:15)
[2021-05-24] MEDS: TOCOPHERYL, DL-ALPHA 400 UNITS 180 MG CAP PO SCH (09:50)
[2021-05-24] MEDS: ASCORBIC ACID 500 MG TAB PO SCH (09:50)
[2021-05-24] MEDS: BUMETANIDE 1 MG TAB PO SCH ×2 (09:50→18:18)
[2021-05-24] MEDS: BISOPROLOL FUMARATE 5 MG TAB PO SCH (09:51)
[2021-05-24 09:53] LABS: Hematocrit (blood only) 37.6 % (42-52); Hemoglobin 12.6 g/dL (14.0-18.0); Mean Corpuscular Hemoglobin 36.7 pg (25-34); Mean Corpuscular Hgb Conc 33.5 g/dL (32-36); Mean Corpuscular Volume 109.6 fL (80-100); Nucleated RBC # (auto) 0.02 K/uL (0-0); Nucleated RBC % (auto) 0.2 %; Platelet Count 324 K/uL (130-400); RDW Coefficient of Variation 17.4 % (11.5-14.5); RDW Standard Deviation 69.1 fL (36.4-46.3); Red Blood Count 3.43 M/uL (4.7-6.1); White Blood Count 9.55 K/uL (4.8-10.8)
[2021-05-24 10:16] LABS: BUN Creatinine Ratio 18.9 (10-20); Calcium 8.1 mg/dl (8.5-10.1); Creatinine Clr Calc Pharmacy 95.3 ml/min; Est GFR (African American) 98.9 ml/min; Est GFR (Non-African American) 85.3 ml/min; Potassium 3.8 mmol/L (3.5-5.1)
--- NOTE | 2021-05-24 11:24 | Hospitalist Progress Note ---
Date of Service May 24, 2021 Assessment & Plan (1) Myelopathy concurrent with and due to spinal stenosis of thoracic region: (2) Back pain: (3) Ambulatory dysfunction: Plan: Recent Thoracic decompression fusion of T10-T11 on 05/06, MRI with suspicion of hematoma as the patient is on Eliquis s/p irrigation and debridement of thoracic hematoma by Dr. Saldaña on 05/21 Per ortho for pain control, wound care, anticoagulation and activities +Acute Post Op Blood Loss Anemia, Hb stable Monitor H&H (pre-op hgb 12.7), continue incentive spirometry, PT/OT when appropriate (4) Atrial fibrillation: Plan: Holding Eliquis, last dose was 2/ in morning. May resume per orthopedic spine Rate controlled on Bisoprolol (5) Chronic diastolic CHF (congestive heart failure): Plan: Continue Bumex 1 mg twice daily, bisoprolol 2.5 mg daily - no signs of volume overload at present. Monitor volume status closely (6) HTN (hypertension): Plan: Follow, medications as above (7) Rheumatoid arthritis: Plan: Stable, chronic DVT PPx: Teds, scds, holding Eliquis until ok to resume per surgeon CODE STATUS: Full Dispo: Admitted to med/surg ROS-No Headache, No Visual Changes, No Nausea, No Vomiting, No Fever, No Chills, No Neck Pain or Stiffness, No Chest Pain, No Palpitations, No SOB, No PATEL, No Cough, No Sputum, No Wheezing, No Abdominal Pain, No Diarrhea, No Hematemesis, No Hemoptysis, No Unexpected Weight Loss, No Flank pain, No Melena, No Hematochezia, No Frequency, No Urgency, No Burning, No Hematuria, No Rashes, No Diaphoresis. Appetite is Mounika, sore backl Physical Exam Gen-AAO x 3, NAD, Afebrile, +Drain in mid back, obese Head-NCAT, EOMI, PERRLA, Anicteric Sclera, No Posterior Pharyngeal Erythema Neck-Supple, No JVD, No Thyromegaly, No Masses, No LAD, No Bruits Lungs-Clear to Auscultation Bilaterally, No Rales, No Rhonchi, No Wheezing, No Crepitus Chest-No S4, +S1, +S2, No S3, No Murmurs, No Rubs, No Gallops, No Ectopy Abdomen-Soft, Bowel Sounds Present, Non Tender, Non Distended, No Hepatomegaly, No Splenomegaly, No Palpable Masses, No Rebound, No Rigidity, No Guarding Musculoskeletal-Full Range of Motion Bilaterally, No CVAT Extremities-No Cyanosis, No Clubbing, No Edema Nuero-Cranial Nerves II-XII grossly intact, Motor WNL, DTRs WNL, Strength WNL, Non Focal Psych-Normal Mood Admission and Anticipated Discharge Date Admission Date: May 19, 2021 Subjective Patient seen, better each day Results & Data Results & Data ([facility]) Vital Signs (Past 12 Hours) Vital Signs Temp Pulse Resp BP Pulse Ox 05/24/21 07:34 36.8 C 77 16 137/88 98 (1) Back pain Back pain laterality: unspecified Back pain location: thoracic back pain Chronicity: unspecified Qualified Code(s): M54.6 - Pain in thoracic spine
[2021-05-24] MEDS: MAGNESIUM OXIDE 400 MG TAB PO SCH (11:32)
[2021-05-24] MEDS: CYANOCOBALAMIN (B-12) 500 MCG TABLET PO SCH (11:32)
[2021-05-24] MEDS: ZINC SULFATE 220 MG CAPSULE PO SCH (11:32)
[2021-05-24] MEDS: CALCIUM 600MG + VIT D 400 IU TAB PO SCH (11:32)
[2021-05-24] MEDS: FOLIC ACID 400 MCG TAB PO SCH (11:33)
[2021-05-24] MEDS: ALFUZOSIN HCL 10 MG TAB PO SCH (15:31)
[2021-05-24] MEDS: traMADol HCL 50 MG TABLET PO PRN (20:14)
[2021-05-24] MEDS: DOCUSATE SODIUM/SENNA 50/8.6MG TAB PO SCH (20:15)
[2021-05-24] MEDS: ENALAPRIL MALEATE 10 MG TAB PO SCH (20:15)
[2021-05-25 06:41] LABS: Hematocrit (blood only) 38.7 % (42-52); Mean Corpuscular Hemoglobin 36.5 pg (25-34); Mean Corpuscular Hgb Conc 33.6 g/dL (32-36); Mean Corpuscular Volume 108.7 fL (80-100); Mean Platelet Volume 10.3 fL (7.4-10.4); Nucleated RBC # (auto) 0.02 K/uL (0-0); Nucleated RBC % (auto) 0.2 %; Platelet Count 320 K/uL (130-400); RDW Coefficient of Variation 17.2 % (11.5-14.5); RDW Standard Deviation 67.5 fL (36.4-46.3); Red Blood Count 3.56 M/uL (4.7-6.1); White Blood Count 9.72 K/uL (4.8-10.8)
[2021-05-25 06:58] LABS: BUN Creatinine Ratio 17.8 (10-20); Creatinine Clr Calc Pharmacy 96.6 ml/min; Est GFR (African American) 99.4 ml/min; Est GFR (Non-African American) 85.8 ml/min; Potassium 3.7 mmol/L (3.5-5.1)
[2021-05-25] MEDS: traMADol HCL 50 MG TABLET PO PRN ×2 (08:32→22:43)
[2021-05-25] MEDS: NON-FORMULARY PATIENT'S OWN MED TD SCH (08:33)
[2021-05-25] MEDS: ASCORBIC ACID 500 MG TAB PO SCH (08:34)
[2021-05-25] MEDS: HYDROXYCHLOROQUINE SULFATE 200 MG TAB PO SCH ×2 (08:34→20:26)
[2021-05-25] MEDS: BUMETANIDE 1 MG TAB PO SCH ×2 (08:35→16:00)
[2021-05-25] MEDS: CHOLECALCIFEROL 1,000 UNITS 25 MCG TAB PO SCH (08:35)
[2021-05-25] MEDS: BISOPROLOL FUMARATE 5 MG TAB PO SCH (08:36)
[2021-05-25] MEDS: TOCOPHERYL, DL-ALPHA 400 UNITS 180 MG CAP PO SCH (08:36)
[2021-05-25] MEDS: CALCIUM 600MG + VIT D 400 IU TAB PO SCH (11:32)
[2021-05-25] MEDS: MAGNESIUM OXIDE 400 MG TAB PO SCH (11:32)
[2021-05-25] MEDS: FOLIC ACID 400 MCG TAB PO SCH (11:33)
[2021-05-25] MEDS: CYANOCOBALAMIN (B-12) 500 MCG TABLET PO SCH (11:33)
[2021-05-25] MEDS: ZINC SULFATE 220 MG CAPSULE PO SCH (11:33)
[2021-05-25] MEDS ORDERED: NURSING DECISION MEDICATION ONE (11:36)
[2021-05-25] MEDS ORDERED: COUGH DROP (SUGAR FREE) LOZ 24 LOZ/1 BOX BUCCAL PRN (11:38)
--- NOTE | 2021-05-25 13:45 | Hospitalist Progress Note ---
Date of Service May 25, 2021 Assessment & Plan (1) Myelopathy concurrent with and due to spinal stenosis of thoracic region: (2) Back pain: (3) Ambulatory dysfunction: Plan: Recent Thoracic decompression fusion of T10-T11 on 05/06, MRI with suspicion of hematoma as the patient is on Eliquis s/p irrigation and debridement of thoracic hematoma by Dr. Saldaña on 05/21 Per ortho for pain control, wound care, anticoagulation and activities +Acute Post Op Blood Loss Anemia, Hb stable Monitor H&H (pre-op hgb 12.7), continue incentive spirometry, PT/OT when appropriate (4) Atrial fibrillation: Plan: Holding Eliquis, last dose was 2/ in morning. May resume per orthopedic spine Rate controlled on Bisoprolol (5) Chronic diastolic CHF (congestive heart failure): Plan: Continue Bumex 1 mg twice daily, bisoprolol 2.5 mg daily - no signs of volume overload at present. Monitor volume status closely (6) HTN (hypertension): Plan: Follow, medications as above (7) Rheumatoid arthritis: Plan: Stable, chronic DVT PPx: Teds, scds, holding Eliquis until ok to resume per surgeon CODE STATUS: Full Dispo: DC when OK c Ortho, Can go from IM standpoint, Resume Eliquis 3-5 days after Drain DCd ROS-No Headache, No Visual Changes, No Nausea, No Vomiting, No Fever, No Chills, No Neck Pain or Stiffness, No Chest Pain, No Palpitations, No SOB, No PATEL, No Cough, No Sputum, No Wheezing, No Abdominal Pain, No Diarrhea, No Hematemesis, No Hemoptysis, No Unexpected Weight Loss, No Flank pain, No Melena, No Hematochezia, No Frequency, No Urgency, No Burning, No Hematuria, No Rashes, No Diaphoresis. Appetite is Mounika, sore backl Physical Exam Gen-AAO x 3, NAD, Afebrile, +Drain in mid back, obese Head-NCAT, EOMI, PERRLA, Anicteric Sclera, No Posterior Pharyngeal Erythema Neck-Supple, No JVD, No Thyromegaly, No Masses, No LAD, No Bruits Lungs-Clear to Auscultation Bilaterally, No Rales, No Rhonchi, No Wheezing, No Crepitus Chest-No S4, +S1, +S2, No S3, No Murmurs, No Rubs, No Gallops, No Ectopy Abdomen-Soft, Bowel Sounds Present, Non Tender, Non Distended, No Hepatomegaly, No Splenomegaly, No Palpable Masses, No Rebound, No Rigidity, No Guarding Musculoskeletal-Full Range of Motion Bilaterally, No CVAT Extremities-No Cyanosis, No Clubbing, No Edema Nuero-Cranial Nerves II-XII grossly intact, Motor WNL, DTRs WNL, Strength WNL, Non Focal Psych-Normal Mood Admission and Anticipated Discharge Date Admission Date: May 19, 2021 Subjective Patient seen, better each day Results & Data Results & Data ([facility]) Vital Signs (Past 12 Hours) Vital Signs Temp Pulse Pulse Resp BP Pulse Ox 05/25/21 12:00 36.7 C 78 18 112/68 95 05/25/21 07:50 37.6 C H 84 16 112/84 95 05/25/21 07:49 36.7 C 80 18 132/87 97 (1) Back pain Back pain laterality: unspecified Back pain location: thoracic back pain Chronicity: unspecified Qualified Code(s): M54.6 - Pain in thoracic spine
[2021-05-25] MEDS: ALFUZOSIN HCL 10 MG TAB PO SCH (14:01)
[2021-05-25] MEDS: DOCUSATE SODIUM/SENNA 50/8.6MG TAB PO SCH (20:25)
[2021-05-25] MEDS: APIXABAN 5 MG TABLET PO SCH (20:26)
[2021-05-25] MEDS: ENALAPRIL MALEATE 10 MG TAB PO SCH (20:26)
[2021-05-26 06:38] LABS: Hematocrit (blood only) 37.3 % (42-52); Hemoglobin 12.7 g/dL (14.0-18.0); Mean Corpuscular Hemoglobin 36.8 pg (25-34); Mean Corpuscular Volume 108.1 fL (80-100); Mean Platelet Volume 10.4 fL (7.4-10.4); Platelet Count 334 K/uL (130-400); RDW Coefficient of Variation 17.2 % (11.5-14.5); Red Blood Count 3.45 M/uL (4.7-6.1); White Blood Count 10.79 K/uL (4.8-10.8)
[2021-05-26 06:57] LABS: BUN Creatinine Ratio 18.2 (10-20); Calcium 7.9 mg/dl (8.5-10.1); Creatinine Clr Calc Pharmacy 91.6 ml/min; Est GFR (African American) 97.3 ml/min; Est GFR (Non-African American) 83.9 ml/min; Potassium 3.7 mmol/L (3.5-5.1)
[2021-05-26] MEDS: NON-FORMULARY PATIENT'S OWN MED TD SCH (08:25)
[2021-05-26] MEDS: APIXABAN 5 MG TABLET PO SCH ×2 (08:25→20:31)
[2021-05-26] MEDS: traMADol HCL 50 MG TABLET PO PRN ×2 (08:25→20:30)
[2021-05-26] MEDS: BUMETANIDE 1 MG TAB PO SCH ×2 (08:25→16:22)
[2021-05-26] MEDS: ASCORBIC ACID 500 MG TAB PO SCH (08:26)
[2021-05-26] MEDS: HYDROXYCHLOROQUINE SULFATE 200 MG TAB PO SCH ×2 (08:26→20:31)
[2021-05-26] MEDS: BISOPROLOL FUMARATE 5 MG TAB PO SCH (08:27)
[2021-05-26] MEDS: CHOLECALCIFEROL 1,000 UNITS 25 MCG TAB PO SCH (08:27)
[2021-05-26] MEDS: TOCOPHERYL, DL-ALPHA 400 UNITS 180 MG CAP PO SCH (08:27)
[2021-05-26] MEDS ORDERED: POLYETHYLENE (MIRALAX) 17 GM PACK PO ONE (09:13)
[2021-05-26] MEDS ORDERED: GLYCERIN ADULT 12 SUPP/BOX SUPP PR ONE (09:25)
--- NOTE | 2021-05-26 09:35 | Orthopedic Progress Note ---
Date of Service May 26, 2021 Assessment & Plan (1) Myelopathy concurrent with and due to spinal stenosis of thoracic region: Plan: This time we plan for the patient is discharged to nursing facility today. We will have the drain pulled prior to discharge. Admission and Anticipated Discharge Date Admission Date: May 19, 2021 Subjective Patient's back pain is controlled. He is tolerating physical therapy. Physical Exam Physical Exam: Patient appears comfortable. He has established foot drop on the right but good strength on the left. CAITLIN drain in place with minimal drainage. Results & Data ([facility]) Vital Signs (Past 12 Hours) Vital Signs Temp Pulse Resp BP Pulse Ox 05/26/21 07:40 36.6 C 71 18 107/67 95 05/25/21 23:00 36.5 C 78 18 111/61 92
[2021-05-26] MEDS: CYANOCOBALAMIN (B-12) 500 MCG TABLET PO SCH (11:14)
[2021-05-26] MEDS: CALCIUM 600MG + VIT D 400 IU TAB PO SCH (11:14)
[2021-05-26] MEDS: MAGNESIUM OXIDE 400 MG TAB PO SCH (11:15)
[2021-05-26] MEDS: ZINC SULFATE 220 MG CAPSULE PO SCH (11:15)
[2021-05-26] MEDS: FOLIC ACID 400 MCG TAB PO SCH (11:15)
[2021-05-26] MEDS: ALFUZOSIN HCL 10 MG TAB PO SCH (13:06)
--- NOTE | 2021-05-26 15:22 | Hospitalist Progress Note ---
Date of Service May 26, 2021 Assessment & Plan (1) Myelopathy concurrent with and due to spinal stenosis of thoracic region: (2) Back pain: (3) Ambulatory dysfunction: Plan: Recent Thoracic decompression fusion of T10-T11 on 05/06, MRI with suspicion of hematoma as the patient is on Eliquis s/p irrigation and debridement of thoracic hematoma by Dr. Saldaña on 05/21 Per ortho for pain control, wound care, anticoagulation and activities +Acute Post Op Blood Loss Anemia, Hb stable Monitor H&H (pre-op hgb 12.7), continue incentive spirometry, PT/OT when appropriate (4) Atrial fibrillation: Plan: Holding Eliquis, last dose was 2/ in morning. May resume per orthopedic spine Rate controlled on Bisoprolol (5) Chronic diastolic CHF (congestive heart failure): Plan: Continue Bumex 1 mg twice daily, bisoprolol 2.5 mg daily - no signs of volume overload at present. Monitor volume status closely (6) HTN (hypertension): Plan: Follow, medications as above (7) Rheumatoid arthritis: Plan: Stable, chronic DVT PPx: Teds, scds, holding Eliquis until ok to resume per surgeon CODE STATUS: Full Dispo: DC when OK c Ortho, Can go from IM standpoint, Resume Eliquis 3-5 days after Drain DCd, Hb stable ROS-No Headache, No Visual Changes, No Nausea, No Vomiting, No Fever, No Chills, No Neck Pain or Stiffness, No Chest Pain, No Palpitations, No SOB, No PATEL, No Cough, No Sputum, No Wheezing, No Abdominal Pain, No Diarrhea, No Hematemesis, No Hemoptysis, No Unexpected Weight Loss, No Flank pain, No Melena, No Hematochezia, No Frequency, No Urgency, No Burning, No Hematuria, No Rashes, No Diaphoresis. Appetite is Mounika, sore backl Physical Exam Gen-AAO x 3, NAD, Afebrile, +Drain in mid back, obese Head-NCAT, EOMI, PERRLA, Anicteric Sclera, No Posterior Pharyngeal Erythema Neck-Supple, No JVD, No Thyromegaly, No Masses, No LAD, No Bruits Lungs-Clear to Auscultation Bilaterally, No Rales, No Rhonchi, No Wheezing, No Crepitus Chest-No S4, +S1, +S2, No S3, No Murmurs, No Rubs, No Gallops, No Ectopy Abdomen-Soft, Bowel Sounds Present, Non Tender, Non Distended, No Hepatomegaly, No Splenomegaly, No Palpable Masses, No Rebound, No Rigidity, No Guarding Musculoskeletal-Full Range of Motion Bilaterally, No CVAT Extremities-No Cyanosis, No Clubbing, No Edema Nuero-Cranial Nerves II-XII grossly intact, Motor WNL, DTRs WNL, Strength WNL, Non Focal Psych-Normal Mood Admission and Anticipated Discharge Date Admission Date: May 19, 2021 Subjective Patient's back pain is controlled. He is tolerating physical therapy. Possible DC today c Drain Results & Data Results & Data ([facility]) Vital Signs (Past 12 Hours) Vital Signs Temp Pulse Resp BP Pulse Ox 05/26/21 14:56 36.7 C 73 18 115/73 96 05/26/21 07:40 36.6 C 71 18 107/67 95 (1) Back pain Back pain laterality: unspecified Back pain location: thoracic back pain Chronicity: unspecified Qualified Code(s): M54.6 - Pain in thoracic spine
[2021-05-26] MEDS: DOCUSATE SODIUM/SENNA 50/8.6MG TAB PO SCH (20:31)
[2021-05-26] MEDS: ENALAPRIL MALEATE 10 MG TAB PO SCH (20:32)
[2021-05-27] MEDS: APIXABAN 5 MG TABLET PO SCH (09:13)
[2021-05-27] MEDS: ASCORBIC ACID 500 MG TAB PO SCH (09:13)
[2021-05-27] MEDS: NON-FORMULARY PATIENT'S OWN MED TD SCH (09:14)
[2021-05-27] MEDS: BISOPROLOL FUMARATE 5 MG TAB PO SCH (09:14)
[2021-05-27] MEDS: CHOLECALCIFEROL 1,000 UNITS 25 MCG TAB PO SCH (09:15)
[2021-05-27] MEDS: BUMETANIDE 1 MG TAB PO SCH (09:15)
[2021-05-27] MEDS: HYDROXYCHLOROQUINE SULFATE 200 MG TAB PO SCH (09:15)
[2021-05-27] MEDS: TOCOPHERYL, DL-ALPHA 400 UNITS 180 MG CAP PO SCH (09:15)
[2021-05-27] MEDS ORDERED: PSYLLIUM 58.6% POWDER PACKET PO SCH (09:30)
[2021-05-27] MEDS ORDERED: POLYETHYLENE (MIRALAX) 17 GM PACK PO SCH (09:30)
[2021-05-27] MEDS: CALCIUM 600MG + VIT D 400 IU TAB PO SCH (12:12)
[2021-05-27] MEDS: CYANOCOBALAMIN (B-12) 500 MCG TABLET PO SCH (12:12)
[2021-05-27] MEDS: ZINC SULFATE 220 MG CAPSULE PO SCH (12:12)
[2021-05-27] MEDS: FOLIC ACID 400 MCG TAB PO SCH (12:12)
[2021-05-27] MEDS: MAGNESIUM OXIDE 400 MG TAB PO SCH (12:12)
--- NOTE | 2021-05-27 13:51 | Hospitalist Progress Note ---
Date of Service May 27, 2021 Assessment & Plan (1) Myelopathy concurrent with and due to spinal stenosis of thoracic region: Plan: per Dr. Cardoso's notes with addendum: (2) Back pain: (3) Ambulatory dysfunction: Plan: Recent Thoracic decompression fusion of T10-T11 on 05/06, MRI with suspicion of hematoma as the patient is on Eliquis s/p irrigation and debridement of thoracic hematoma by Dr. Saldaña on 05/21 Per ortho for pain control, wound care, anticoagulation and activities +Acute Post Op Blood Loss Anemia /16 Hg stable ~12-13 no symptoms (4) Atrial fibrillation: Plan: continue Bisoprolol, Eliquis (5) Chronic diastolic CHF (congestive heart failure): Plan: euvolemic Continue Bumex 1 mg twice daily, bisoprolol 2.5 mg daily (6) HTN (hypertension): Plan: BP stable (7) Rheumatoid arthritis: Plan: Stable on Plaquenil DVT PPx: Eliquis CODE STATUS: Full Disposition: awaiting acceptance to Rehab Admission and Anticipated Discharge Date Admission Date: May 19, 2021 Subjective ff up for s/p thoracic spine surgery, etc seen resting in bed, comfortable states he feels fine overall except feels somewhat weak on his legs no chest pain, dyspnea, palpitations, dizziness ambulates with no problems except feeling weak no other symptoms Review of Systems Review of Systems: all noted and negative except for above Physical Exam Physical Exam: General- oriented x 3, not in distress, speaks in sentences with no effort or accessory muscle use Eyes- anicteric Neck- no JVD Lungs- clear breath sounds bilaterally, no rales/wheezes Heart- normal rate, regular rhythm; no murmurs Abdomen- normal bowel sounds, nondistended, soft, nontender Extremities- no pretibial edema, no calf tenderness Neuro- alert, oriented x 3; no gross focal neurologic deficits Skin- warm & dry Back- dressing in place: no bleeding or discharge Results & Data Results & Data ([facility]) Vital Signs (Past 12 Hours) Vital Signs Temp Pulse Pulse Pulse Resp BP BP 05/27/21 12:55 36.6 C 78 73 69 18 135/82 118/81 05/27/21 07:25 36.6 C 69 18 135/82 Pulse Ox 05/27/21 12:55 97 05/27/21 07:25 97 all noted and reviewed including below (1) Back pain Back pain laterality: unspecified Back pain location: thoracic back pain Chronicity: unspecified Qualified Code(s): M54.6 - Pain in thoracic spine
[2021-05-27] MEDS: ALFUZOSIN HCL 10 MG TAB PO SCH (14:44)
[2021-05-27] MEDS: traMADol HCL 50 MG TABLET PO PRN (14:49)
--- NOTE | 2021-06-15 12:52 | Discharge Summary ---
Date of Service June 15, 2021 Admission HPI Per Admitting Provider This is an 81-year-old male known to me status post thoracic decompression fusion secondary to thoracic myelo malacia. He presents with bilateral leg weakness and several falls over the past few days. Subsequent admitted for further work-up. Principal Diagnosis Thoracic seroma Discharge Data Allergies Allergy/AdvReac Type Severity Reaction Status Date / Time No Known Allergies Allergy Unknown Verified 05/19/21 15:24 Consultations 05/19/21 16:37 ED Decision to Admit Stat 05/19/21 21:52 Consult Internal Medicine Routine Procedures Performed Operation Date: 05/21/21 07:45 Actual Procedures p Incision and Drainage of Thoracic Spine(Not Applicable) - Per Saldaña DO Ordered Studies 05/19/21 16:37 MR thoracic spine wo con Stat Hospital Course (1) Back pain: Patient was admitted with postoperative thoracic seroma. He underwent surgery the following day tolerates well stable orthopedic floor. He progressed appropriately postoperatively to be doing decreasing probably. Subsequent discharge home. Discharge orders instructions on the chart for further view. Total Time Total Time Spent Total Time Spent (In Minutes): 20 minutes Discharge Plan Discharge Items Patient Disposition: Transfer Inpatient Rehab Fac Reason For Visit: LEG WEAKNESS Discharge Diagnosis: Thoracic spinal stenosis with myelopathy Activity: As commented below Lifting: No more than 5 pounds Bathing Comment: vanesa shower 05/25/2021 Exercise/Sports: None Weightbearing: Full weightbearing Non-emergency contact: Primary Care Provider Call non-emergency contact if: you have any medication questions Follow-up/Referrals: Salinas Garza D.O. [Primary Care Provider] - Diet: Regular Addtl Attending Provider Instructions: ACTIVITY RECOMMENDATIONS: SELF CARE INSTRUCTIONS AFTER THORACIC/LUMBAR FUSIONS 1. You may walk to your tolerance. It is good exercise for your legs and back. Expect some back and intermittent leg aches and pains. 2. You may perform "counter-top" level activities (make a sandwich, jeison with a project, etc.). 3. No bending or lifting of more than 10 pounds or back twisting of any nature (roll like a log when turning in bed). 4. You may ride in a car for 20-30 minutes at a time. No driving until after your first visit with your doctor. 5. Frequent changes of position and restricting sitting to 30 minutes at a time will help limit the amount of back spasms and stiffness you may experience. 6. You may discontinue the use of ambulatory aids (cane, crutches, etc.) once your strength and confidence allow. 7. 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 Do not take a tub bath, sit in a hot tub or go into a swimming pool until after your first recheck in the office. SPECIAL CARE INSTRUCTIONS: VERY IMPORTANT TO READ AND REVIEW A. Your surgical incision has been closed with a cosmetic suture under the skin that will dissolve in about 6 weeks. In 14 days, you can use a pair of clean scissors and cut the suture that is left outside of the skin at the ends of your incision. 1. The small skin tapes can be removed 7 days after surgery if they have not fallen off by that point. 2. You may keep the wound open to air as much as possible to promote healing after post-op day number 5 unless told otherwise by your doctor. 3. If you think the wound looks like it is becoming infected (redness or worsening drainage) and/or you are experiencing fever, chill or worsening back pain and muscle spasms, contact the office so that we may evaluate you as soon as possible. B. Complications are uncommon, but please contact us if you have any signs or symptoms of: 1. wound infection (fever higher than 102.5 degrees F, redness, separation of wound, drainage, or increasing pain from the incision) 2. blood clots in legs (pain, swelling, redness and warmth in legs) 3. urinary tract infection (fever higher than 102.5 degrees F, burning upon urination or increased frequency of urination) 4. nerve problems (inability to walk on your toes or heels, numbness, loss of bowel or bladder control) 5. any other symptoms that concern you C. Please call the office at if you have any concerns or questions about your operation or recovery. D. No smoking! Smoking drastically decreases the chance of a solid fusion. E. Do not take any anti-inflammatory medications (Indocin, Advil, Motrin, Aspirin, Naprosyn, etc.) as these may inhibit the chance of a solid fusion. Tylenol is okay to take for pain. MANAGING PAIN AFTER SPINAL SURGERY 1. Narcotic medication is intended for short-term use and will be provided for surgical pain. Surgical pain usually lasts for a period of 4-6 weeks. Narcotic medication includes Percocet, Vicodin, Darvocet, Tylenol #3 or Lortab. 2. Longer-term pain is more appropriately treated with non-narcotic medication such as Tylenol ES. 3. Muscle spasm is not appropriately treated with narcotics. Muscle relaxers such as Soma, Flexeril or Skelaxin can be used along with Tylenol ES. 4. Remember that we all live with some "aches and pains". This is not unusual or uncommon after an injury or as we get older. a. Back pain is expected and may include muscle spasms for 4 to 6 weeks a fter surgery. The pain should gradually improve. If the pain worsens for no apparent reason, please contact the office. b. Intermittent leg pain may also be experienced and should not be concerned about unless it worsens for no apparent reason. If so, please contact the office. 5. We will provide appropriate medication within the normal guidelines of their prescribed use. We will also be very cautious and aware of potential abuse and extended duration of patients' medication needs. a. Pain medications are for your comfort and to assist with sleep and rest so that the tissue can heal. They are not provided in order to return to normal activity and should not be used through the day. To do so or worsening pain at night can result from ongoing tissue damage and development of tolerance to the prescribed medicine. 6. Please allow 2-3 days to process refills. Prescriptions will not be mailed but must be picked up at the office. FOLLOW UP VISIT: Keep your scheduled follow-up appointment. Any questions, please call the office at . Pending Studies at Discharge: No Stand-Alone Forms: My [facility] Skilled Items Patient informed of condition?: Yes DNR: No Discharge Level of Care: Skilled Communicable Disease: No Discharge Prognosis: Improving Lines: None Urinary Catheter: No Medications and DC Order Prescriptions: New tramadol 50 mg tablet 50 mg PO Q6H PRN (Reason: pain, moderate) Qty: 30 RF: 0 Continued cyanocobalamin (vitamin B-12) [Vitamin B-12] 1,000 mcg Tablet 1,000 mcg PO QDL RF: 0 bisoprolol fumarate 5 mg tablet 2.5 mg PO QAM RF: 0 bumetanide 1 mg tablet 1 mg PO BID RF: 0 zinc 50 mg Tablet 50 mg PO QDL RF: 0 hydroxychloroquine 200 mg tablet 200 mg PO BID RF: 0 folic acid 800 mcg Tablet 0.8 mg PO QDL RF: 0 ramipril 10 mg capsule 10 mg PO BID RF: 0 cholecalciferol (vitamin D3) [Vitamin D3] 25 mcg (1,000 unit) Capsule 50 mcg PO DAILY RF: 0 alfuzosin 10 mg tablet extended release 24 hr 10 mg PO QPM RF: 0 calcium carbonate-vitamin D3 [Calcium 500 + D] 500 mg-5 mcg (200 unit) Tablet 1 tab PO QDL RF: 0 vitamin E (dl, acetate) 180 mg (400 unit) Capsule 180 mg PO QAM RF: 0 coQ10 (ubiquinol) 200 mg Capsule 200 mg PO QDL RF: 0 testosterone 30 mg/actuation (1.5 mL) solution in metered pump w/ana 3 pump topical QAM RF: 0 magnesium oxide 400 mg magnesium Tablet 400 mg PO QDL RF: 0 Eliquis 5 mg tablet 5 mg PO BID RF: 0 selenium 200 mcg Tablet 200 mcg PO DAILY RF: 0 acetaminophen 650 mg Tablet Extended Release 1,300 mg PO DIRECTED PRN (Reason: Pain) RF: 0 ascorbic acid (vitamin C) [Vitamin C] 250 mg Tablet 250 mg PO DAILY RF: 0 Discharge Orders: Discharge Order (Routine); Ordered 05/27/21 Ordered By: Per Saldaña Admission Data Admit Date/Time: 05/19/21 17:40 Attending Provider: Per Saldaña Admit Provider: Per Saldaña Primary Care Provider: Salinas Garza Other Providers: Sarah Cm ; Per Saldaña ; Phil[facility] Recinos ; [facility] ; Donal Reyez Other Interventions: Discharge Summary Assessment (RN) Last Done: 05/27/21 12:55
== END 2021-05-27 14:56 | DRG 908 ==
LOC: ED 13:02 → 3W 17:40